=== PATIENT | female | born 1980 | race Caucasian/White ===

== ENCOUNTER 2022-06-19 09:19 | Inpatient (IN) | payer MEDICARE, SELFPAY ==
[2022-06-19 09:28] VITALS: BP 186/138; PULSE 129; RESP 20; TEMP 37; O2SAT 99; BMI 29.7
--- NOTE | 2022-06-19 09:35 | ED.C_ITS ---
HPI - Psych General: Chief Complaint: Psychiatric Symptoms Stated Complaint: Mental Health Eval Time Seen by Provider: 06/19/22 09:35 History of Present Illness: Ms. Ureña is a 41-year-old lady with history of schizoaffective disorder presenting to the emergency department due to worsening psychiatric symptoms and alcohol abuse. The patient reports not taking her medications for 6 or 8 months for schizoaffective disorder. She has had increasing hallucinations including auditory and visual hallucinations as well as abnormal mood and paranoia. She has been self treating with alcohol and is up to drinking approximately a 5th of vodka per day. She previously was on Suboxone for alcohol abuse however has not had this for approximately 1 month either. Overall intensity symptoms is severe. Course has been worsening. No other specific changes in health, exacerbating, or alleviating factors identified. Onset (ago): month(s) Duration: getting worse History of same: Yes Exacerbating factors: alcohol Context: not taking psychiatric medications Associated psychiatric symptoms: racing thoughts, auditory hallucinations, visual hallucinations and delusions Review of Systems General: Reports: 10 or more systems reviewed and unremarkable except in HPI and below PFSH ED PFSH: Medical History Schizoaffective disorder Social History Alcohol intake: current Female Reproductive History: Date of last menstrual period: 06/05/22 Physical Exam Const: COMMON NORMALS: alert GENERAL APPEARANCE: cooperative and well developed HENMT: COMMON NORMALS: normocephalic and atraumatic HEAD & SCALP: normo cephalic and atraumatic Eye: COMMON NORMALS: conjunctivae normal CONJUNCTIVA: Yes conjunctivae normal SCLERA: sclerae normal Neck/C-Spine: COMMON NORMALS: supple GENERAL: Yes trachea midline Resp: COMMON NORMALS: clear to auscultation bilaterally EFFORT & INSPECTION: Yes able to speak in complete sentences AUSCULTATION: clear to auscultation bilaterally Cardio: COMMON NORMALS: regular rate and regular rhythm RATE: regular rate RHYTHM: regular rhythm GI: COMMON NORMALS: Soft to palpation PALPATION: Yes Soft to palpation and No Tenderness to palpation present (GI) Extremity: GENERAL: Yes normal exam except as noted and No edema Neuro: COMMON NORMALS: moves all extremities SENSORIUM/ORIENTATION: Yes alert and No Orientation impaired Psych: ACTIVITY/MOTOR BEHAVIOR: Yes fidgeting, Yes restless and Yes Avoids eye contact (attititude/behavior) MOOD & AFFECT: Yes anxious Course Vital Signs: Vital signs: Vital Signs Temperature 98.6 F 06/20/22 06:00 Pulse Rate 68 06/20/22 06:00 Respiratory Rate 18 06/20/22 06:00 Blood Pressure 114/74 06/20/22 06:00 Pulse Oximetry 95 06/20/22 06:00 Oxygen Delivery Me thod 06/20/22 06:00 MDM - Psych Medical Decision Making 41-year-old lady with history of schizoaffective disorder presenting with not taking medications and worsening psychiatric symptoms and substance abuse. P atient is nontoxic on exam however notably fidgety and at times appears to be concerned about internal stimuli. Laboratory studies notable for mild leukocytosis which may be reactive versus mild dehydration, normal hemoglobin. Metabolic panel with mild evidence of dehydration. Patient can adequately orally rehydrate. Toxic ingestions negative with exception of ethyl alcohol which is mildly elevated at 33 mg/dL. Based on ED evaluation there is no indication for imaging at this time. The results of ED evaluation were discussed with the patient including plan for admission due to requirement for level of care not available if discharged to prevent significant worsening/deterioration. The patient notes marked worsening of psychiatric symptoms which impair her daily functioning. Patient agreeable with plan. Case discussed with psychiatry service who accepted the patient as an admission to neuropsych unit. Medical Records I reviewed the patient's medical records. Lab Data I reviewed the patient's lab results. : 06/19/22 10:04 06/19/22 10:04 Laboratory Results WBC 11.0 10^3/uL (4.0-10.0) H 06/19/22 10:04 RBC 4.48 10^6/uL (4.1-5.3) 06/19/22 10:04 Hgb 14.5 g/dL (11.5-15.3) 06/19/22 10:04 Hct 44.6 % (37.0-47.0) 06/19/22 10:04 MCV 99.6 fl (81-99) H 06/19/22 10:04 MCH 32.4 pg (28.0-34.0) 06/19/22 10:04 MCHC 32.5 g/dL (30.0-36.0) 06/19/22 10:04 RDW 12.8 % (12.1-15.1) 06/19/22 10:04 Plt Count 429 10^3/cmm (130-400) H 06/19/22 10:04 MPV 9.5 fL (7.4-10.4) 06/19/22 10:04 Neut % (Auto) 66.8 % 06/19/22 10:04 Lymph % (Auto) 21.0 % 06/19/22 10:04 Reeves % (Auto) 8.7 % 06/19/22 10:04 Eos % (Auto) 1.9 % 06/19/22 10:04 Baso % (Auto) 1.1 % 06/19/22 10:04 Neut # (Auto) 7.33 10^3/uL (1.8-7.7) 06/19/22 10:04 Lymph # (Auto) 2.3 10^3/uL (0.8-4.8) 06/19/22 10:04 Reeves # (Auto) 1.0 10^3/uL (0.2-0.9) H 06/19/22 10:04 Eos # (Auto) 0.2 10^3/uL (0.0-0.8) 06/19/22 10:04 Baso # (Auto) 0.1 10^3/uL (0.0-0.1) 06/19/22 10:04 Nucleated RBC % (auto) 0 % 06/19/22 10:04 Nucleated RBCs # 0.0 /100WBC 06/19/22 10:04 Sodium 132 mmol/L (136-145) L 06/19/22 10:04 Potassium 4.0 mmol/L (3.5-5.1) 06/19/22 10:04 Chloride 99 mmol/L (98-107) 06/19/22 10:04 Carbon Dioxide 18 mmol/L (22-29) L 06/19/22 10:04 Anion Gap 19.0 (5-19) 06/19/22 10:04 BUN 13 mg/dL (6-20) 06/19/22 10:04 Creatinine 0.6 mg/dL (0.5-0.9) 06/19/22 10:04 GFR Calculation 109.6 mL/min (90-130) 06/19/22 10:04 Glucose 103 mg/dL (65-115) 06/19/22 10:04 Calculated Osmolality 274 mOsm/kg (285-295) L 06/19/22 10:04 Calcium 9.4 mg/dL (8.5-10.5) 06/19/22 10:04 Total Bilirubin 0.5 mg/dL (0.15-1.2) 06/19/22 10:04 AST 40 U/L (0-32) H 06/19/22 10:04 ALT 27 U/L (0-33) 06/19/22 10:04 Alkaline Phosphatase 107 U/L (35-105) H 06/19/22 10:04 Total Protein 8.4 g/dL (6.6-8.7) 06/19/22 10:04 Albumin 4.8 g/dL (3.5-5.2) 06/19/22 10:04 Globulin 3.6 g/dL (1.3-4.6) 06/19/22 10:04 TSH 1.27 uIU/mL (0.27-4.20) 06/19/22 10:04 HCG, Qual Negative (Negative) 06/19/22 09:50 Salicylates < 0.3 mg/dL (3-10) L 06/19/22 10:04 Urine Opiates Screen Negative ng/mL (Negative) 06/19/22 09:50 Acetaminophen < 5.0 ug/mL (10-30) L 06/19/22 10:04 Ur Barbiturates Screen Negative ng/mL (Negative) 06/19/22 09:50 Ur Phencyclidine Scrn Negative ng/mL (Negative) 06/19/22 09:50 Ur Amphetamines Screen Negative ng/mL (Negative) 06/19/22 09:50 U Benzodiazepines Scrn Negative ng/mL (Negative) 06/19/22 09:50 Urine Cocaine Screen Negative ng/mL (Negative) 06/19/22 09:50 U Marijuana (THC) Screen Negative ng/mL (Negative) 06/19/22 09:50 Ethyl Alcohol 33 mg/dL (0-10) H 06/19/22 10:04 Discharge Plan Discharge Patient Disposition: Admitted As Inpatient Admit Provider: True Ibarra Clinical Impression: Schizoaffective disorder, Alcohol abuse, Noncompliance with medications Condition: Stable Coding Level of Care Code ED Technology Education Teacher for Chg Fwd Exam Comprehensive
[2022-06-19] MEDS: nicotine 14 mg Patch 1 PATCH TRANSDERMA (10:09)
[2022-06-19] MEDS: LORazepam 1 mg Tablet PO (10:09)
[2022-06-19 10:12] LABS: Basophils # 0.1 10^3/uL (0.0-0.1); Basophils % 1.1 %; Eosinophils # 0.2 10^3/uL (0.0-0.8); Eosinophils % 1.9 %; Hematocrit 44.6 % (37.0-47.0); Hemoglobin 14.5 g/dL (11.5-15.3); Lymphocytes # 2.3 10^3/uL (0.8-4.8); Mean Corpuscular HGB Conc 32.5 g/dL (30.0-36.0); Mean Corpuscular Hemoglobin 32.4 pg (28.0-34.0); Mean Corpuscular Volume 99.6 fl (81-99); Mean Platelet Volume 9.5 fL (7.4-10.4); Monocytes % 8.7 %; Neutrophils # 7.33 10^3/uL (1.8-7.7); Neutrophils % 66.8 %; Nucleated Red Blood Cells % 0 %; Platelet Count 429 10^3/cmm (130-400); Red Blood Count 4.48 10^6/uL (4.1-5.3); Red Cell Distribution Width 12.8 % (12.1-15.1)
[2022-06-19 10:20] LABS: HCG Qualitative Urine. Negative (Negative)
[2022-06-19 10:28] LABS: Amphetamines Screen Urine Negative (Negative); Barbiturates Screen Urine Negative (Negative); Benzodiazepines Screen Urine Negative (Negative); Cocaine Screen Urine Negative (Negative); Opiate Screen Urine Negative (Negative); PCP Screen Urine Negative (Negative); THC Screen Urine Negative (Negative)
[2022-06-19 10:46] LABS: Alanine Aminotransferase 27 U/L (0-33); Albumin Level 4.8 g/dL (3.5-5.2); Alcohol Level 33 mg/dL (0-10); Alkaline Phosphatase 107 U/L (35-105); Aspartate Amino Transferase 40 U/L (0-32); Blood Urea Nitrogen 13 mg/dL (6-20); Calcium 9.4 mg/dL (8.5-10.5); Carbon Dioxide 18 mmol/L (22-29); Chloride 99 mmol/L (98-107); Globulin 3.6 g/dL (1.3-4.6); Glomerular Filtration Rate 109.6 mL/min (90-130); Glucose 103 mg/dL (65-115); Osmolality Calculated 274 mOsm/kg (285-295); Sodium 132 mmol/L (136-145); Thyroid Stimulating Hormone 1.27 uIU/mL (0.27-4.20); Total Bilirubin 0.5 mg/dL (0.15-1.2); Total Protein 8.4 g/dL (6.6-8.7)
[2022-06-19 10:48] LABS: Acetaminophen < 5.0 ug/mL (10-30); Salicylate < 0.3 mg/dL (3-10)
[2022-06-19 12:04] VITALS: BP 170/98; PULSE 115; RESP 20; TEMP 37; O2SAT 99
--- NOTE | 2022-06-19 12:04 | PC.NURSE ---
Pt being transferred to NPU via wheelchair with PSA, Nurse tech, and nurse. Report has been called at 1125 to NPU nurseNadia.
[2022-06-19 12:10] VITALS: BP 149/93; PULSE 123; RESP 18; TEMP 37.1; O2SAT 98
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
[2022-06-19 14:00] VITALS: BP 149/93; PULSE 123; RESP 18; TEMP 37.1; O2SAT 98
[2022-06-19] MEDS: paliperidone ER 3 mg Tablet PO (14:17)
[2022-06-19] MEDS: OLANZapine 5 mg ODT PO ×2 (14:17→20:20)
[2022-06-19] MEDS: LORazepam 2 mg Tablet PO ×2 (14:39→19:53)
--- NOTE | 2022-06-19 16:42 | PC.OT ---
OT EVALUATION ATTEMPTED. PATIENT IS SLEEPING SOUNDLY. EVALUATION TO BE ATTEMPTED AGAIN TOMORROW.
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
[2022-06-19] MEDS: ondansetron 4 MG Tablet PO (19:53)
[2022-06-19] MEDS: acetaminophen 325 mg Tablet 650 MG PO (19:53)
[2022-06-19] MEDS: trazodone 50 mg Tablet PO (20:20)
[2022-06-20] MEDS: OLANZapine 5 mg ODT PO ×2 (05:24→20:44)
[2022-06-20 06:00] VITALS: BP 114/74; PULSE 68; RESP 18; TEMP 37; O2SAT 95
[2022-06-20] MEDS: potassium chloride ER 10 mEq Tablet PO (08:27)
[2022-06-20] MEDS: paliperidone ER 3 mg Tablet PO (08:27)
[2022-06-20] MEDS: ascorbic acid 500 mg Tablet PO (08:27)
[2022-06-20] MEDS: cholecalciferol (vitamin D3) 1,000 unit Tablet 1000 UNIT PO (08:27)
[2022-06-20] MEDS: LORazepam 2 mg Tablet PO ×3 (08:27→20:50)
[2022-06-20] MEDS: prenatal vitamin Capsule 1 CAP PO (08:27)
--- NOTE | 2022-06-20 09:21 | PC.OT ---
Eval attempt - Patient asleep during time of attempted evaluation. Will try again at a later time.
[2022-06-20] MEDS: nicotine 2 mg Gum BUCCAL ×3 (12:01→20:50)
[2022-06-20] MEDS: haloperidol 5 mg Tablet PO (12:19)
--- NOTE | 2022-06-20 13:57 | PC.NURSE ---
This nurse went to admin hydroxyzine and the patient stated that she did not want that because it causes her seizures. This nurse notified the provider.
[2022-06-20 14:00] VITALS: BP 134/88; PULSE 88; RESP 16; TEMP 36.7; O2SAT 96
--- NOTE | 2022-06-20 17:24 | W.PM.NPUPNS ---
Subjective NPU Subjective: Patient is a 41-year-old white female with a history of alcohol dependence PTSD and depression admitted with hallucinations irritability and agitation. She had reported significant anxiety and reports no alcohol in several days. She states that she needed something to help her with alcohol withdrawal at this time. She reported having occasional suicidal thoughts. She had reported that her thoughts at times were racing. She reported no side effects from the initiation of Invega to target mood swings irritability and agitation. She had stated that she needed help with managing her addiction. She had reported an extended history of multiple medication trials and states that she wished to have her medications adjusted. She reported having difficulties with falling asleep. She had reported some abdominal pain and discomfort. Mental Status Exam MSE Comments: She is a 41-year-old white female who appeared her stated age. She was disheveled with poor hygiene. She did appear to be somewhat anxious and in some distress forth during the interview with some tremors noted in her arms. Her eye contact was intermittent. Her mood was described as depressed. Her affect was mood congruent and restricted in range and flat. Her thought process was linear logical and goal-directed. Her thought content revealed fleeting suicidal thoughts with no active plan at this time. There was no clear evidence of delusional thinking although she did appear at times to be responding to internal stimuli. Her speech showed evidence of increased latency, and normal prosody and volume. Impulse control remained poor. Her insight was limited and her judgment is poor at this time. Vitals/I&O/Wt Last Vital Signs Temp 98.1 F 06/20/22 14:00 Pulse 88 06/20/22 14:00 Resp 16 06/20/22 14:00 BP 134/88 06/20/22 14:00 Pulse Ox 96 06/20/22 14:00 O2 Del Method 06/20/22 06:00 Weight last 48 hrs Weight 81.193 kg Data NPU : 06/19/22 10:04 06/19/22 10:04 A&P Assessment and plan (1) Schizoaffective disorder: (2) Alcohol abuse: Plan 41-year-old white female without history of schizoaffective disorder bipolar type currently experiencing an exacerbation of her symptoms including active psychosis depressed mood with an additional comorbidity of alcohol dependence. 1.? Start invega 3mg at night; 2.? Encourage individual, group and milieu therapy 3.? Continue q-15 minute check for safety 4.? Recommend sober living treatment at the highest level of care to which the patient is willing to commit. 5. CIWA scale to monitor for alcohol withdrawal symptoms. Will begin routine librium 10mg bid. Involuntary Hold Information 96 Hour Hold: 96 Hour Involuntary Admission: No Attestations NPU Medical Necessity Statement*: Inpatient hospitalization is medically necessary and the clinically appropriate intervention at this time. We will monitor medications and make changes as indicated. Patient will be in the hospital for over two midnights. Likely length of stay is five to seven days. Coding Level of Care Code Established Pt Acute Heavy Mobile Equipment Repairer for Tomasag Fwmikal Patient Type Established History Problem Focused Exam Problem Focused Medical Decision Making Straight Forward Diagnoses Schizoaffective disorder F25.9 Alcohol abuse F10.10
[2022-06-20] MEDS: chlordiazePOXIDE 10 mg Capsule PO (17:47)
[2022-06-20 20:07] VITALS: RESP 17
[2022-06-20] MEDS: trazodone 50 mg Tablet PO (20:44)
[2022-06-20] MEDS: acetaminophen 325 mg Tablet 650 MG PO (20:50)
[2022-06-21] MEDS: OLANZapine 5 mg ODT PO ×3 (05:04→17:56)
[2022-06-21] MEDS: nicotine 2 mg Gum BUCCAL ×3 (05:05→17:54)
[2022-06-21 06:00] VITALS: RESP 16
[2022-06-21] MEDS: LORazepam 2 mg Tablet PO ×3 (07:43→20:14)
[2022-06-21] MEDS: nicotine 21 mg Patch 1 PATCH TRANSDERMA (07:52)
[2022-06-21] MEDS: paliperidone ER 3 mg Tablet PO (08:47)
[2022-06-21] MEDS: chlordiazePOXIDE 10 mg Capsule PO ×2 (08:47→17:53)
[2022-06-21] MEDS: ascorbic acid 500 mg Tablet PO (08:47)
[2022-06-21] MEDS: prenatal vitamin Capsule 1 CAP PO (08:47)
[2022-06-21] MEDS: potassium chloride ER 10 mEq Tablet PO (08:47)
[2022-06-21] MEDS: cholecalciferol (vitamin D3) 1,000 unit Tablet 1000 UNIT PO (08:47)
--- NOTE | 2022-06-21 12:35 | PC.NURSE ---
PRN MEDS PATIENT COMPLAINS OF INCREASING ANXIETY. 5 MG ZYPREXA GIVEN AT 1220
[2022-06-21] MEDS: simethicone 80 mg Chew PO (13:20)
[2022-06-21 13:36] VITALS: BP 132/92; PULSE 127; RESP 16; TEMP 36.6; O2SAT 100
--- NOTE | 2022-06-21 14:01 | W.PM.NPUPNS ---
Subjective NPU Subjective: Patient is a 41-year-old white female who has a history of schizoaffective disorder bipolar type was admitted with significant alcohol consumption along with a reemergence of depression and hallucinations. Patient had admitted to the use of 2 pints of alcohol daily for months. She reports that she did benefit from receiving Librium last night. She had reported feeling anxious and continue to report feeling depressed with suicidal thoughts and complaints of hearing voices in her head. She had reported an extended history of medication trials without success but reported that she was hopeful about seeing benefits with Invega as she had taken it before in the past. She had attended some groups. She reported continued sleep problems as well. She had reported racing thoughts at times and reported having continued irritability. She had endorsed having very little sobriety over the last few years. She reported problems with concentration and reported being distracted easily. Mental Status Exam MSE Comments: She is a 41-year-old white female who appeared her stated age. She was disheveled with poor hygiene. She did appear to be somewhat anxious and in some distress forth during the interview with some tremors noted in her arms. Her eye contact was intermittent. Her mood was depressed. Her affect was mood congruent and flat with restricted range. Her thought process was linear logical and goal-directed. Her thought content revealed fleeting suicidal thoughts with no active plan at this time. There was no clear evidence of delusional thinking although she did appear at times to be responding to internal stimuli. Her speech showed evidence of increased latency, and normal prosody and volume. Impulse control remained poor. Her insight was limited and her judgment is poor at this time. Vitals/I&O/Wt Last Vital Signs Temp 97.9 F 06/21/22 13:36 Pulse 127 H 06/21/22 13:36 Resp 16 06/21/22 13:36 BP 132/92 06/21/22 13:36 Pulse Ox 100 06/21/22 13:36 O2 Del Method 06/20/22 06:00 Data NPU : 06/19/22 10:04 06/19/22 10:04 A&P Assessment and plan (1) Schizoaffective disorder: (2) Alcohol abuse: Plan 41-year-old white female without history of schizoaffective disorder bipolar type currently experiencing an exacerbation of her symptoms including active psychosis depressed mood with an additional comorbidity of alcohol dependence. 1.? Continue invega 3mg at night; add cymbalta 30mg daily target anxiety. 2.? Encourage individual, group and milieu therapy 3.? Continue q-15 minute check for safety 4.? Recommend sober living treatment at the highest level of care to which the patient is willing to commit. 5. CIWA scale to monitor for alcohol withdrawal symptoms. Will begin routine librium 10mg bid. Involuntary Hold Information 96 Hour Hold: 96 Hour Involuntary Admission: No Attestations NPU Medical Necessity Statement*: Inpatient hospitalization is medically necessary and the clinically appropriate intervention at this time. We will monitor medications and make changes as indicated. Patient will be in the hospital for over two midnights. Likely length of stay is five to seven days. She would benefit from inpatient substance abuse treatment. Coding Level of Care Code Established Pt Acute Roping Machine Tender for Pérez Carmona Patient Type Established History Problem Focused Exam Problem Focused Medical Decision Making Straight Forward Diagnoses Schizoaffective disorder F25.9 Alcohol abuse F10.10
[2022-06-21] MEDS: haloperidol 5 mg Tablet PO ×2 (14:27→18:41)
[2022-06-21] MEDS: diphenhydrAMINE 50 mg Capsule PO (15:07)
[2022-06-21] MEDS: LORazepam 2 mg/mL INJ 1 mL IM (16:11)
[2022-06-21] MEDS: diphenhydrAMINE 50 mg/mL SDV 1mL IM (16:12)
[2022-06-21] MEDS: haloperidol inj 5 mg/mL INJ 1 mL IM (16:12)
[2022-06-21 20:07] VITALS: BP 128/87; PULSE 103; RESP 16; TEMP 36.7; O2SAT 96
[2022-06-22 06:00] VITALS: RESP 18
[2022-06-22] MEDS: prenatal vitamin Capsule 1 CAP PO (08:41)
[2022-06-22] MEDS: paliperidone ER 3 mg Tablet PO (08:41)
[2022-06-22] MEDS: cholecalciferol (vitamin D3) 1,000 unit Tablet 1000 UNIT PO (08:41)
[2022-06-22] MEDS: ascorbic acid 500 mg Tablet PO (08:41)
[2022-06-22] MEDS: duloxetine 30 mg Capsule PO (08:41)
[2022-06-22] MEDS: chlordiazePOXIDE 10 mg Capsule PO (08:41)
[2022-06-22] MEDS: potassium chloride ER 10 mEq Tablet PO (08:41)
[2022-06-22] MEDS: LORazepam 2 mg Tablet PO ×2 (08:45→18:41)
[2022-06-22] MEDS: nicotine 2 mg Gum BUCCAL ×2 (09:04→11:27)
[2022-06-22] MEDS: simethicone 80 mg Chew PO (09:53)
[2022-06-22] MEDS: OLANZapine 5 mg ODT PO ×2 (10:14→16:06)
[2022-06-22] MEDS: haloperidol inj 5 mg/mL INJ 1 mL IM (11:33)
[2022-06-22] MEDS: diphenhydrAMINE 50 mg/mL SDV 1mL IM (11:40)
[2022-06-22] MEDS: acetaminophen 325 mg Tablet 650 MG PO (13:35)
[2022-06-22] MEDS: LORazepam 2 mg/mL INJ 1 mL IM (13:42)
[2022-06-22] MEDS: nicotine 21 mg Patch 1 PATCH TRANSDERMA (13:45)
[2022-06-22 14:00] VITALS: RESP 15
--- NOTE | 2022-06-22 14:11 | W.PM.NPUPNS ---
Subjective NPU Subjective: Patient is a 41-year-old white female who has a history of schizoaffective disorder bipolar type was admitted with significant alcohol consumption along with a reemergence of depression and hallucinations. Patient had admitted to the use of 2 pints of alcohol daily for months. She remains on an alcohol withdrawal protocol. She had continued reported history of depression under the auspices of patricio as well. She had reported having mixed mood symptoms in the past. She reported continued suicidal thoughts and depressed mood. She had reported that she wished to receive inpatient substance abuse treatment if possible. She had continued to endorse hearing different voices but stated that she was able to distract herself. She had required addition of Ativan last night due to alcohol withdrawal symptoms. She was able to attend groups and appeared less isolative on the milieu. Mental Status Exam MSE Comments: She is a 41-year-old white female who appeared her stated age. She was disheveled with poor hygiene. There was no evidence of any abnormal involuntary motor movements tics or tremors appreciated today her eye contact was intermittent. Her mood was depressed. Her affect was mood congruent and flat with restricted range. Her thought process was linear logical and goal-directed. Her thought content revealed fleeting suicidal thoughts with no active plan at this time. There was no clear evidence of delusional thinking although she did appear at times to be responding to internal stimuli. Her speech was normal in regards to rate rhythm and prosody.,Impulse control remained poor. Her insight was limited and her judgment is poor at this time. Vitals/I&O/Wt Last Vital Signs Temp 98.1 F 06/21/22 20:07 Pulse 103 H 06/21/22 20:07 Resp 18 06/22/22 06:00 BP 128/87 06/21/22 20:07 Pulse Ox 96 06/21/22 20:07 O2 Del Method 06/20/22 06:00 Weight last 48 hrs Weight 84.822 kg Data NPU : 06/19/22 10:04 06/19/22 10:04 A&P Assessment and plan (1) Schizoaffective disorder: (2) Alcohol abuse: Plan 41-year-old white female without history of schizoaffective disorder bipolar type currently experiencing an exacerbation of her symptoms including active psychosis depressed mood with an additional comorbidity of alcohol dependence. 1.? ;Discontinue Invega and begin latuda 40mg at night with food to target bipolar depression. Continue cymbalta 30mg daily to target anxiety. 2.? Encourage individual, group and milieu therapy 3.? Continue q-15 minute check for safety 4.? Recommend sober living treatment at the highest level of care to which the patient is willing to commit. 5. CIWA scale to monitor for alcohol withdrawal symptoms. Reduce Librium 5mg tid. Involuntary Hold Information 96 Hour Hold: 96 Hour Involuntary Admission: No Attestations NPU Medical Necessity Statement*: Inpatient hospitalization is medically necessary and the clinically appropriate intervention at this time. We will monitor medications and make changes as indicated. Patient will be in the hospital for over two midnights. Likely length of stay is five to seven days. She would benefit from inpatient substance abuse treatment. Coding Level of Care Code Established Pt Acute Song And Dance Performer for Pérez Carmona Patient Type Established History Problem Focused Exam Problem Focused Medical Decision Making Straight Forward Diagnoses Schizoaffective disorder F25.9 Alcohol abuse F10.10
[2022-06-22] MEDS: haloperidol 5 mg Tablet PO (16:42)
[2022-06-22 17:32] LABS: Glucose Point of Care 126 mg/dL (70-110)
[2022-06-22] MEDS: lurasidone 20 mg Tablet 40 MG PO (17:39)
[2022-06-22] MEDS: diazePAM 5 mg Tablet PO (17:39)
[2022-06-22] MEDS: doxepin 25 mg Capsule PO (19:42)
[2022-06-22 21:41] VITALS: BP 127/84; PULSE 104; RESP 18; TEMP 36.7; O2SAT 98
[2022-06-23] MEDS: haloperidol 5 mg Tablet PO ×3 (05:29→20:33)
[2022-06-23 05:54] VITALS: BP 134/86; PULSE 121; RESP 18; TEMP 36.4; O2SAT 97
[2022-06-23] MEDS: duloxetine 30 mg Capsule PO (08:21)
[2022-06-23] MEDS: cholecalciferol (vitamin D3) 1,000 unit Tablet 1000 UNIT PO (08:21)
[2022-06-23] MEDS: prenatal vitamin Capsule 1 CAP PO (08:21)
[2022-06-23] MEDS: diazePAM 5 mg Tablet PO ×2 (08:21→17:20)
[2022-06-23] MEDS: potassium chloride ER 10 mEq Tablet PO (08:21)
[2022-06-23] MEDS: ascorbic acid 500 mg Tablet PO (08:21)
[2022-06-23] MEDS: OLANZapine 5 mg ODT PO ×2 (09:06→13:06)
[2022-06-23] MEDS: LORazepam 2 mg Tablet PO (09:28)
[2022-06-23] MEDS: nicotine 2 mg Gum BUCCAL ×4 (09:28→20:33)
[2022-06-23] MEDS: acetaminophen 325 mg Tablet 650 MG PO ×2 (10:20→20:33)
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
[2022-06-23 14:00] VITALS: BP 117/68; PULSE 128; RESP 16; TEMP 36.7; O2SAT 98
--- NOTE | 2022-06-23 16:23 | P.NPUPN_ITS ---
Subjective NPU Subjective: Patient is a 41-year-old white female who has a history of schizoaffective disorder bipolar type was admitted with significant alcohol consumption along with a reemergence of depression and hallucinations. Patient endorsed no alcohol withdrawal symptoms today. She reports that she wished to resume her Suboxone as it had been helpful for managing opiate cravings. She reports no side effects from her Latuda at this time. She continue to endorse depressed mood but reported no suicidal thoughts. She reported that she had been not having as many racing thoughts. She reports that she wishes to receive help on an inpatient basis for alcohol dependence but understood that there was a waiting list and stated that she would like to return to an outpatient treatment for her polysubstance abuse. Patient reported that the voices had been significantly diminished in regards to intensity and frequency. Mental Status Exam MSE Comments: She is a 41-year-old white female who appeared her stated age. She was disheveled with poor hygiene. There was no evidence of any abnormal involuntary motor movements tics or tremors appreciated today her eye contact was intermittent. Her mood was described as a little better. Her affect was mood incongruent and flat with restricted range. Her thought process was linear logical and goal-directed. Her thought content revealed fleeting suicidal thoughts with no active plan at this time. There was no clear evidence of delusional thinking although she did appear at times to be responding to internal stimuli. Her speech was normal in regards to rate rhythm and prosody.,Impulse control remained poor. Her insight was limited and her judgment is poor at this time. Vitals/I&O/Wt Last Vital Signs Temp 98.1 F 06/23/22 14:00 Pulse 128 H 06/23/22 14:00 Resp 16 06/23/22 14:00 BP 117/68 06/23/22 14:00 Pulse Ox 98 06/23/22 14:00 O2 Del Method 06/20/22 06:00 Weight last 48 hrs Weight 84.822 kg Data NPU : 06/19/22 10:04 06/19/22 10:04 A&P Assessment and plan (1) Schizoaffective disorder: (2) Alcohol abuse: Plan 41-year-old white female without history of schizoaffective disorder bipolar type currently experiencing an exacerbation of her symptoms including active psychosis depressed mood with an additional comorbidity of alcohol dependence. 1.? Continue latuda 40mg at night with food to target bipolar depression. Continue cymbalta 30mg daily to target anxiety. Continue Doxepin 25mg at night for insomnia. 2.? Encourage individual, group and milieu therapy 3.? Continue q-15 minute check for safety 4.? Recommend sober living treatment at the highest level of care to which the patient is willing to commit. 5. CIWA scale to monitor for alcohol withdrawal symptoms. Reduce valium to 2.5mg bid. Involuntary Hold Information 96 Hour Hold: 96 Hour Involuntary Admission: No Attestations NPU Medical Necessity Statement*: Inpatient hospitalization is medically necessary and the clinically appropriate intervention at this time. We will monitor medications and make changes as indicated. Patient will be in the hospital for over two midnights. Likely length of stay is five to seven days. She would oanh efit from inpatient substance abuse treatment if possible. Coding Level of Care Code Established Pt Acute Guest Services Associate for Pérez Carmona Patient Type Established History Problem Focused Exam Problem Focused Medical Decision Making Straight Forward Diagnoses Schizoaffective disorder F25.9 Alcohol abuse F10.10
[2022-06-23] MEDS: lurasidone 20 mg Tablet 40 MG PO (17:20)
[2022-06-23] MEDS: buprenorphine-naloxone 4-1 mg Film 1 EACH SUBLINGUAL (17:20)
[2022-06-23] MEDS: ondansetron 4 MG Tablet PO (17:21)
[2022-06-23] MEDS: calcium carbonate 500 mg Chew Tablet 1000 MG PO (18:43)
[2022-06-23 20:20] VITALS: BP 118/79; PULSE 114; RESP 16; TEMP 36.8; O2SAT 94
[2022-06-23] MEDS: doxepin 25 mg Capsule PO (20:57)
[2022-06-24 06:00] VITALS: BP 110/71; PULSE 93; RESP 16; TEMP 36.6; O2SAT 96
[2022-06-24] MEDS: nicotine 2 mg Gum BUCCAL ×2 (06:11→20:23)
[2022-06-24] MEDS: buprenorphine-naloxone 4-1 mg Film 1 EACH SUBLINGUAL ×2 (08:21→18:24)
[2022-06-24] MEDS: prenatal vitamin Capsule 1 CAP PO (08:21)
[2022-06-24] MEDS: duloxetine 30 mg Capsule PO (08:21)
[2022-06-24] MEDS: potassium chloride ER 10 mEq Tablet PO (08:21)
[2022-06-24] MEDS: cholecalciferol (vitamin D3) 1,000 unit Tablet 1000 UNIT PO (08:21)
[2022-06-24] MEDS: diazePAM 5 mg Tablet 2.5 MG PO (08:21)
[2022-06-24] MEDS: ascorbic acid 500 mg Tablet PO (08:21)
[2022-06-24] MEDS: ondansetron 4 MG Tablet PO ×2 (08:24→18:27)
[2022-06-24] MEDS: acetaminophen 325 mg Tablet 650 MG PO ×2 (08:31→16:49)
[2022-06-24] MEDS: nicotine 21 mg Patch 1 PATCH TRANSDERMA (09:31)
[2022-06-24 14:00] VITALS: BP 112/86; PULSE 83; RESP 15; TEMP 36.6; O2SAT 96
[2022-06-24] MEDS: calcium carbonate 500 mg Chew Tablet 1000 MG PO (14:48)
[2022-06-24] MEDS: OLANZapine 5 mg ODT PO ×2 (15:18→20:23)
--- NOTE | 2022-06-24 17:09 | P.NPUPN_ITS ---
Subjective NPU Subjective: Patient is a 41-year-old white female who has a history of schizoaffective disorder bipolar type was admitted with significant alcohol consumption along with a reemergence of depression and hallucinations. The patient reported feeling better today. She reported no withdrawal symptoms from alcohol. She reports that she had no cravings for alcohol and denied any opiate associated cravings. She reported a past history of manic and hypomanic symptoms but reported having greater periods of depression. She reported tolerance of Latuda and was informed to take it with food. She reports that she would like to attend inpatient treatment for substance abuse but would be willing to consider outpatient for the time being. She reports having no suicidal thoughts currently and reports that the auditory hallucinations have diminished. Mental Status Exam MSE Comments: She is a 41-year-old white female who appeared her stated age. She was disheveled with poor hygiene. There was no evidence of any abnormal involuntary motor movements tics or tremors appreciated today her eye contact was intermittent. Her mood was described as better. Her affect was mood congruent today.. Her thought process was linear logical and goal-directed. Her thought content showed no suicidal ideation with no active plan at this time. There was no clear evidence of delusional thinking and did not appear to be responding to internal stimuli. Her speech was normal in regards to rate rhythm and prosody. Impulse control appeared to be improving. Her insight was limited and her judgment is poor at this time. Vitals/I&O/Wt Last Vital Signs Temp 97.8 F 06/24/22 06:00 Pulse 93 06/24/22 06:00 Resp 16 06/24/22 06:00 BP 110/71 06/24/22 06:00 Pulse Ox 96 06/24/22 06:00 O2 Del Method 06/20/22 06:00 Data NPU : 06/19/22 10:04 06/19/22 10:04 A&P Assessment and plan (1) Schizoaffective disorder: (2) Alcohol abuse: Plan 41-year-old white female without history of schizoaffective disorder bipolar type currently experiencing an exacerbation of her symptoms including active psychosis depressed mood with an additional comorbidity of alcohol dependence. 1.? Continue latuda 40mg at night with food to target bipolar depression. Continue cymbalta 30mg daily to target anxiety. Continue Doxepin 25mg at night for insomnia. 2.? Encourage individual, group and milieu therapy 3.? Continue q-15 minute check for safety 4.? Recommend sober living treatment at the highest level of care to which the patient is willing to commit. 5. CIWA scale to monitor for alcohol withdrawal symptoms. Reduce valium to 2.5mg in am. Involuntary Hold Information 96 Hour Hold: 96 Hour Involuntary Admission: No Attestations NPU Medical Necessity Statement*: Inpatient hospitalization is medically necessary and the clinically appropriate intervention at this time. We will monitor medications and make changes as indicated. Patient will be in the hospital for over two midnights. Likely length of stay is 1-2 days. She would benefit from inpatient substance abuse treatment if possible. Coding Level of Care Code Established Pt Acute Doctor Chiropractic for Pérez Carmona Patient Type Established History Problem Focused Exam Problem Focused Medical Decision Making Straight Forward Diagnoses Schizoaffective disorder F25.9 Alcohol abuse F10.10
[2022-06-24] MEDS: lurasidone 20 mg Tablet 40 MG PO (18:24)
[2022-06-24] MEDS: magnesium hydroxide 30 mL UDC PO (19:13)
[2022-06-24 20:05] VITALS: BP 115/81; PULSE 108; RESP 18; TEMP 36.7; O2SAT 96
[2022-06-24] MEDS: doxepin 25 mg Capsule PO (20:23)
[2022-06-25 06:00] VITALS: BP 121/79; PULSE 94; RESP 16; TEMP 36.8; O2SAT 95
[2022-06-25] MEDS: acetaminophen 325 mg Tablet 650 MG PO (06:00)
[2022-06-25] MEDS: diazePAM 5 mg Tablet 2.5 MG PO (08:15)
[2022-06-25] MEDS: potassium chloride ER 10 mEq Tablet PO (08:15)
[2022-06-25] MEDS: buprenorphine-naloxone 4-1 mg Film 1 EACH SUBLINGUAL (08:15)
[2022-06-25] MEDS: cholecalciferol (vitamin D3) 1,000 unit Tablet 1000 UNIT PO (08:15)
[2022-06-25] MEDS: prenatal vitamin Capsule 1 CAP PO (08:15)
[2022-06-25] MEDS: ascorbic acid 500 mg Tablet PO (08:15)
[2022-06-25] MEDS: duloxetine 30 mg Capsule PO (08:15)
[2022-06-25] MEDS: ondansetron 4 MG Tablet PO (08:30)
[2022-06-25] MEDS: nicotine 2 mg Gum BUCCAL (08:37)
[2022-06-25] MEDS: magnesium hydroxide 30 mL UDC PO (08:43)
[2022-06-25] MEDS: OLANZapine 5 mg ODT PO (09:18)
[2022-06-25 09:41] VITALS: BP 121/79; PULSE 94; RESP 16; TEMP 36.8; O2SAT 95
--- NOTE | 2022-06-25 09:49 | DCPLANNER ---
Imm was given to pt and explained. Copy was placed in chart.
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
== END 2022-06-25 11:04 | disposition home or self-care (01) | DRG 885 ==
LOC: ER 11:00 → NP 11:23
PROVIDERS: Admitting Provider Psychiatry & Neurology Psychiatry; Emergency Provider Emergency Medicine; Visit Provider Psychiatry & Neurology Psychiatry
DX: F25.0 Schizoaffective disorder, bipolar type (principal); R45.851 Suicidal ideations; F10.239 Alcohol dependence with withdrawal, unspecified; Y90.1 Blood alcohol level of 20-39 mg/100 ml; T43.96XA Underdosing of unspecified psychotropic drug, initial encounter; E86.0 Dehydration; F43.10 Post-traumatic stress disorder, unspecified; G47.00 Insomnia, unspecified; R25.1 Tremor, unspecified; Z62.810 Personal history of physical and sexual abuse in childhood; Z86.19 Personal history of other infectious and parasitic diseases; Z91.410 Personal history of adult physical and sexual abuse
CPT/HCPCS: 36415; 36416; 80053; 80306; 80307; 81025; 82962; 84443; 85025; 96372; 97150; 97165; 99285; J0573; J1200; J1630; J2060; Q0162; Q0163

== ENCOUNTER 2022-09-15 09:15 | Inpatient (IN) | payer MEDICARE, MEDICAID, SELFPAY ==
[2022-09-15 09:20] VITALS: BP 157/93; PULSE 128; RESP 22; TEMP 36.8; O2SAT 96; BMI 28.8
--- NOTE | 2022-09-15 10:02 | W.ED.PSYCHS ---
HPI - Psych General: Chief Complaint: Psychiatric Symptoms Stated Complaint: MHE Time Seen by Provider: 09/15/22 09:30 Source: patient Mode of arrival: ambulatory Limitations: no limitations History of Present Illness: Patient is a 42-year-old female with a history of schizoaffective bipolar type here for complaints of patricio and significant anxiety. Patient tells me that she is battling herself in her head . She feels like her medications are not working. Patient states she has not slept or ate in four days. She states she is not functioning well currently due to her anxiety. States she has been drinking more to cope. Denies drug use. No suicidal or homicidal ideations. MD complaint: other (patricio, anxiety, etoh abuse) Onset (ago): day(s) Duration: constant History of same: Yes Exacerbating factors: none Context: recent alcohol abuse Associated psychiatric symptoms: racing thoughts Associated symptoms: Deny auditory hallucinations, visual hallucinations, depression, homicidal ideation or suicidal ideation Treatments prior to arrival: none Review of Systems Const: Denies: fever(s) or chills Card: Denies: chest pain, palpitations, lightheadedness or syncope Resp: Denies: dyspnea GI: Denies: abdominal pain, nausea, vomiting or diarrhea Musc: Denies: neck pain, back pain, extremity pain or joint pain Skin/Breast: Denies: rash Neuro: Denies: headache(s), numbness in extremities, weakness in extremities or sensory changes Psych: Reports: anxiety, mood swings, panic attacks, sleeping less, change in appetite, irritability and difficulty concentrating; Denies: depression, hopelessness, loss of interest, visual hallucinations, auditory hallucinations, suicidal ideation or homicidal ideation [facility] ED PFSH: Medical History Psychiatric care Schizoaffective disorder Social History Alcohol intake: current Female Reproductive History: Date of last menstrual period: 06/05/22 Physical Exam Const: COMMON NORMALS: no acute distress, patient oriented x3, no limitations, alert and well nourished GENERAL APPEARANCE: cooperative, well kempt and odor of alcohol detected ORIENTATION/CONSCIOUSNESS: Yes awake, Yes oriented to person, Yes oriented to place and Yes oriented to time HENMT: COMMON NORMALS: normocephalic and atraumatic HEAD & SCALP: normal to inspection, normocephalic and atraumatic Resp: COMMON NORMALS: normal respiratory effort and clear to auscultation bilaterally AUSCULTATION: clear to auscultation bilaterally Cardio: COMMON NORMALS: regular rate and regular rhythm RATE: regular rate RHYTHM: regular rhythm Neuro: [place] COMA SCALE: document GCS findings [place] coma scale eye opening: Spontaneous [place] coma scale verbal response: Orientated [place] coma scale motor response: Obey commands [place] coma scale total score: 15 COMMON NORMALS: patient oriented x3 SENSORIUM/ORIENTATION: Yes alert, Yes oriented to person, Yes oriented to place and Yes oriented to time Psych: COMMON NORMALS: mental status grossly normal, Normal thought process present, cooperative, normal affect, speech normal, denies hallucinations, denies homicidal ideation and denies suicidal ideation APPEARANCE: Yes grossly normal and Yes well kempt ATTITUDE: Yes calm ACTIVITY/MOTOR BEHAVIOR: Yes appropriate eye contact, No psychomotor agitation, Yes fidgeting, Yes restless and Yes other (rocking back and forth on bed) SPEECH: Yes normal speech MOOD & AFFECT: Yes anxious THOUGHT PROCESS: Normal thought process present THOUGHT CONTENT: Yes Normal thought content present ATTENTION/CONCENTRATION: Yes attention grossly intact and Yes concentration grossly intact MEMORY/COGNITION: Yes memory grossly intact and Yes cognition grossly intact INSIGHT: Good insight present (Psych) JUDGEMENT: Good judgement present (Psych) Course Consultations: Consultation #1: Dr. Ibarra-accepts to NPU Vital Signs: Vital signs: Vital Signs Temperature 98.3 F 09/15/22 09:20 Pulse Rate 128 H 09/15/22 09:20 Respiratory Rate 22 H 09/15/22 09:20 Blood Pressure 157/93 09/15/22 09:20 Pulse Oximetry 96 09/15/22 09:20 Oxygen Delivery Me thod 09/15/22 09:20 MDM - Psych Medical Decision Making Patient here requesting psychiatric hospitalization. She states she is not functioning or able to perform daily activities secondary to her current manic status and anxiety. States she has not ate or slept in 4 days. She is extremely anxious and antsy here-pacing around her room, pulling her hair out, ect. Patient would benefit from hospitalization. Spoke to Dr. Ibarra who accepts admission. Lab Data 09/15/22 10:35 09/15/22 10:35 Laboratory Results WBC 14.5 10^3/uL (4.0-10.0) H 09/15/22 10:35 RBC 4.79 10^6/uL (4.1-5.3) 09/15/22 10:35 Hgb 14.8 g/dL (11.5-15.3) 09/15/22 10:35 Hct 44.3 % (37.0-47.0) 09/15/22 10:35 MCV 92.5 fl (81-99) 09/15/22 10:35 MCH 30.9 pg (28.0-34.0) 09/15/22 10:35 MCHC 33.4 g/dL (30.0-36.0) 09/15/22 10:35 RDW 12.5 % (12.1-15.1) 09/15/22 10:35 Plt Count 451 10^3/cmm (130-400) H 09/15/22 10:35 MPV 9.2 fL (7.4-10.4) 09/15/22 10:35 Neut % (Auto) 66.3 % 09/15/22 10:35 Lymph % (Auto) 25.4 % 09/15/22 10:35 [place] % (Auto) 6.1 % 09/15/22 10:35 Eos % (Auto) 1.0 % 09/15/22 10:35 Baso % (Auto) 0.8 % 09/15/22 10:35 Neut # (Auto) 9.62 10^3/uL (1.8-7.7) H 09/15/22 10:35 Lymph # (Auto) 3.7 10^3/uL (0.8-4.8) 09/15/22 10:35 [place] # (Auto) 0.9 10^3/uL (0.2-0.9) 09/15/22 10:35 Eos # (Auto) 0.2 10^3/uL (0.0-0.8) 09/15/22 10:35 Baso # (Auto) 0.1 10^3/uL (0.0-0.1) 09/15/22 10:35 Nucleated RBC % (auto) 0 % 09/15/22 10:35 Nucleated RBCs # 0.0 /100WBC 09/15/22 10:35 Sodium 136 mmol/L (136-145) 09/15/22 10:35 Potassium 3.8 mmol/L (3.5-5.1) 09/15/22 10:35 Chloride 99 mmol/L (98-107) 09/15/22 10:35 Carbon Dioxide 21 mmol/L (22-29) L 09/15/22 10:35 Anion Gap 19.8 (5-19) H 09/15/22 10:35 BUN 15 mg/dL (6-20) 09/15/22 10:35 Creatinine 0.5 mg/dL (0.5-0.9) 09/15/22 10:35 GFR Calculation 134.7 mL/min (90-130) H 09/15/22 10:35 Glucose 100 mg/dL (65-115) 09/15/22 10:35 Calculated Osmolality 283 mOsm/kg (285-295) L 09/15/22 10:35 Calcium 8.5 mg/dL (8.5-10.5) 09/15/22 10:35 Total Bilirubin 0.2 mg/dL (0.15-1.2) 09/15/22 10:35 AST 26 U/L (0-32) 09/15/22 10:35 ALT 22 U/L (0-33) 09/15/22 10:35 Alkaline Phosphatase 109 U/L (35-105) H 09/15/22 10:35 Total Protein 8.0 g/dL (6.6-8.7) 09/15/22 10:35 Albumin 4.7 g/dL (3.5-5.2) 09/15/22 10:35 Globulin 3.3 g/dL (1.3-4.6) 09/15/22 10:35 HCG, Qual Negative (Negative) 09/15/22 10:35 Salicylates 0.4 mg/dL (3-10) L 09/15/22 10:35 Urine Opiates Screen Negative ng/mL (Negative) 09/15/22 10:40 Acetaminophen < 5.0 ug/mL (10-30) L 09/15/22 10:35 Ur Barbiturates Screen Negative ng/mL (Negative) 09/15/22 10:40 Ur Phencyclidine Scrn Negative ng/mL (Negative) 09/15/22 10:40 Ur Amphetamines Screen Negative ng/mL (Negative) 09/15/22 10:40 U Benzodiazepines Scrn Negative ng/mL (Negative) 09/15/22 10:40 Urine Cocaine Screen Negative ng/mL (Negative) 09/15/22 10:40 U Marijuana (THC) Screen Negative ng/mL (Negative) 09/15/22 10:40 Ethyl Alcohol 215 mg/dL (0-10) H 09/15/22 10:35 Discharge Plan Discharge Patient Disposition: Admitted As Inpatient Clinical Impression: Schizoaffective disorder, Alcohol abuse Condition: Stable Coding Level of Care Code ED Flight Data Technician for Pérez Fwd Exam Detailed
[2022-09-15 10:46] LABS: Basophils # 0.1 10^3/uL (0.0-0.1); Basophils % 0.8 %; Eosinophils # 0.2 10^3/uL (0.0-0.8); Hematocrit 44.3 % (37.0-47.0); Hemoglobin 14.8 g/dL (11.5-15.3); Lymphocytes # 3.7 10^3/uL (0.8-4.8); Lymphocytes % 25.4 %; Mean Corpuscular HGB Conc 33.4 g/dL (30.0-36.0); Mean Corpuscular Hemoglobin 30.9 pg (28.0-34.0); Mean Corpuscular Volume 92.5 fl (81-99); Mean Platelet Volume 9.2 fL (7.4-10.4); Monocytes # 0.9 10^3/uL (0.2-0.9); Monocytes % 6.1 %; Neutrophils # 9.62 10^3/uL (1.8-7.7); Neutrophils % 66.3 %; Nucleated Red Blood Cells % 0 %; Platelet Count 451 10^3/cmm (130-400); Red Blood Count 4.79 10^6/uL (4.1-5.3); Red Cell Distribution Width 12.5 % (12.1-15.1); White Blood Count 14.5 10^3/uL (4.0-10.0)
[2022-09-15] MEDS: LORazepam 2 mg Tablet 1 MG PO (10:55)
[2022-09-15 11:04] LABS: Amphetamines Screen Urine Negative (Negative); Barbiturates Screen Urine Negative (Negative); Benzodiazepines Screen Urine Negative (Negative); Cocaine Screen Urine Negative (Negative); Opiate Screen Urine Negative (Negative); PCP Screen Urine Negative (Negative); THC Screen Urine Negative (Negative)
[2022-09-15 11:08] LABS: HCG, Serum Qual Negative (Negative)
[2022-09-15 11:09] LABS: Alanine Aminotransferase 22 U/L (0-33); Albumin Level 4.7 g/dL (3.5-5.2); Alcohol Level 215 mg/dL (0-10); Alkaline Phosphatase 109 U/L (35-105); Anion Gap 19.8 (5-19); Aspartate Amino Transferase 26 U/L (0-32); Blood Urea Nitrogen 15 mg/dL (6-20); Calcium 8.5 mg/dL (8.5-10.5); Carbon Dioxide 21 mmol/L (22-29); Chloride 99 mmol/L (98-107); Globulin 3.3 g/dL (1.3-4.6); Glomerular Filtration Rate 134.7 mL/min (90-130); Glucose 100 mg/dL (65-115); Osmolality Calculated 283 mOsm/kg (285-295); Potassium 3.8 mmol/L (3.5-5.1); Salicylate 0.4 mg/dL (3-10); Sodium 136 mmol/L (136-145); Total Bilirubin 0.2 mg/dL (0.15-1.2)
[2022-09-15 11:10] LABS: Acetaminophen < 5.0 ug/mL (10-30)
[2022-09-15] MEDS: nicotine 21 mg Patch 1 PATCH TRANSDERMA (11:37)
[2022-09-15] MEDS: OLANZapine 10 mg ODT PO (11:43)
[2022-09-15 12:52] VITALS: BP 141/100; PULSE 113; RESP 18; TEMP 36.9; O2SAT 95
[2022-09-15] MEDS: thiamine 100 mg Tablet PO (13:10)
[2022-09-15] MEDS: ondansetron 4 MG Tablet PO ×2 (13:10→20:57)
[2022-09-15] MEDS: LORazepam 2 mg Tablet PO ×2 (13:10→20:58)
[2022-09-15] MEDS: acetaminophen 325 mg Tablet 650 MG PO (13:10)
[2022-09-15] MEDS: folic acid 1 mg Tablet PO (13:10)
[2022-09-15] MEDS: multivitamin therapeutic Tablet 1 TAB PO (13:10)
[2022-09-15 14:00] VITALS: BP 141/100; PULSE 113; RESP 18; TEMP 36.9; O2SAT 95
--- NOTE | 2022-09-15 14:20 | PC.NURSE ---
Patient states she arrived at ER due to feeling she was getting crazy again. She stated she hasn't slept or ate in 4 days. She says she drinks a 5th of hard alcohol daily. She appears to be experiencing detox symptoms as she is sweating, reports a headache, and has tremors. Patient also vomited three times while this RN was conducting her assessment. Patient denied SI/HI and VH. She endorses hearing car doors opening and shutting. She states she has been taking doxepin for sleep and that it is not working. She also takes latuda and cymbalta but states it is not helping either. Patient states she has tried to get into [facility] for rehabilitation, but has been unable to do so due to their lack of communication. Patient calm and cooperative.
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
[2022-09-15] MEDS: baclofen 10 mg Tablet PO (18:06)
[2022-09-15] MEDS: lurasidone 20 mg Tablet 60 MG PO (18:06)
[2022-09-15] MEDS: buprenorphine-naloxone 4-1 mg Film 1 EACH SUBLINGUAL (18:07)
[2022-09-15] MEDS: OLANZapine 5 mg ODT PO (18:09)
--- NOTE | 2022-09-15 18:10 | PC.NURSE ---
PRN Warp Starter Patient presented to nurses' station nauseous and anxious. Patient has slight tremors and asked for something for her nerves. When presenting patient with the choice between zyprexa and ativan she stated she would rather have the zyprexa ODT 10mg.
[2022-09-15] MEDS: gabapentin 300 mg Capsule PO (20:30)
[2022-09-15 21:10] VITALS: BP 100/63; PULSE 95; RESP 16; TEMP 36.7; O2SAT 96
[2022-09-16] MEDS: ondansetron 4 MG Tablet PO (05:45)
[2022-09-16] MEDS: LORazepam 2 mg Tablet PO (05:45)
[2022-09-16] MEDS: folic acid 1 mg Tablet PO (09:39)
[2022-09-16] MEDS: gabapentin 300 mg Capsule PO ×3 (09:39→20:15)
[2022-09-16] MEDS: buprenorphine-naloxone 4-1 mg Film 1 EACH SUBLINGUAL (09:39)
[2022-09-16] MEDS: multivitamin therapeutic Tablet 1 TAB PO (09:39)
[2022-09-16] MEDS: thiamine 100 mg Tablet PO (09:39)
[2022-09-16] MEDS: duloxetine 60 mg Capsule PO (09:39)
[2022-09-16] MEDS: baclofen 10 mg Tablet PO ×2 (09:39→17:02)
[2022-09-16] MEDS: OLANZapine 5 mg ODT PO (13:59)
[2022-09-16 14:00] VITALS: BP 125/82; PULSE 80; RESP 17; TEMP 36.4; O2SAT 96
[2022-09-16] MEDS: nicotine 2 mg Gum BUCCAL ×2 (15:08→18:23)
[2022-09-16] MEDS: lurasidone 20 mg Tablet 60 MG PO (16:50)
[2022-09-16] MEDS: nicotine 21 mg Patch 1 PATCH TRANSDERMA (16:54)
[2022-09-16] MEDS: buprenorphine-naloxone 4-1 mg Film 2 EACH SUBLINGUAL (17:02)
--- NOTE | 2022-09-16 17:38 | W.PM.NPUPNS ---
Subjective NPU Subjective: Luly is a 42-year-old white female admitted with increased manic symptoms auditory hallucinations and increased anxiety. She had to continue to report hope that she might receive inpatient hospice hallucination for substance abuse if she had reported being unable to quell her desire for alcohol. She had reported continued anxiety symptoms. She had reported that she was on Suboxone 16 mg a day and not 8 mg a day as previously prescribed. She reported no suicidal thoughts at this time. She was able to attend groups. She had reported continued problems with sleep but states that her mind continues to race late at night. She had complained of continued depression as well. She was redirectable on the milieu. She had reported having extreme difficulties with managing her anxiety but stated that she understood that she could not be placed on benzodiazepines given her addiction history. Mental Status Exam MSE Comments: She is 42-year-old white female who appeared in mild to moderate distress she appeared anxious on interview with some increase psychomotor agitation noted. Her eye contact was fair there is no evidence of any abnormal involuntary motor movements tics or tremors appreciated. Mood was described as okay . Her affect appeared anxious but mood congruent. Her thought process was linear logical and goal-directed. Her thought content showed evidence of some suicidal ideation no active plan at this time. There was no evidence of homicidal ideation. She endorsed auditory hallucinations but did not appear to be responding internal stimuli. Her speech was normal in regards to rate rhythm and prosody. Her impulse control appeared poor. Her insight was limited. Her judgment was poor as well. Her recent and remote memory appeared grossly intact. Vitals/I&O/Wt Last Vital Signs Temp 97.5 F L 09/16/22 14:00 Pulse 80 09/16/22 14:00 Resp 17 09/16/22 14:00 BP 125/82 09/16/22 14:00 Pulse Ox 96 09/16/22 14:00 O2 Del Method 09/15/22 21:10 Weight last 48 hrs Weight 76.113 kg Data NPU 09/15/22 10:35 09/15/22 10:35 A&P Assessment and plan (1) Schizoaffective disorder: (2) Alcohol abuse: (3) Opioid dependence: Plan 42-year-old white female without history of schizoaffective disorder bipolar type currently experiencing an exacerbation of her symptoms including active psychosis depressed mood with an additional comorbidity of alcohol dependence. 1.? Continue latuda at 60mg at night with food to target bipolar depression. Increase Cymbalta 60mg daily to target anxiety. Suboxone dose confirmed to be 8mg/2mg bid, will change today. 2.? Encourage individual, group and milieu therapy 3.? Continue q-15 minute check for safety 4.? Recommend sober living treatment at the highest level of care to which the patient is willing to commit. 5. CIWA scale to monitor for alcohol withdrawal symptoms. Involuntary Hold Information 96 Hour Hold: 96 Hour Involuntary Admission: No Attestations NPU Medical Necessity Statement*: Inpatient hospitalization is medically necessary and the clinically appropriate intervention at this time. We will monitor medications and make changes as indicated. Patient will be in the hospital for over two midnights. Likely length of stay is 5-7 days. Coding Level of Care Code Established Pt Acute Code for Chg Fwd Patient Type Established History Problem Focused Exam Problem Focused Medical Decision Making Straight Forward Diagnoses Schizoaffective disorder F25.9 Alcohol abuse F10.10 Opioid dependence F11.20
[2022-09-16] MEDS: trazodone 50 mg Tablet PO (20:17)
[2022-09-16 20:52] VITALS: BP 108/65; PULSE 94; RESP 16; TEMP 36.7; O2SAT 94
[2022-09-17] MEDS: folic acid 1 mg Tablet PO (08:43)
[2022-09-17] MEDS: multivitamin therapeutic Tablet 1 TAB PO (08:43)
[2022-09-17] MEDS: thiamine 100 mg Tablet PO (08:43)
[2022-09-17] MEDS: baclofen 10 mg Tablet PO ×2 (08:43→17:20)
[2022-09-17] MEDS: gabapentin 300 mg Capsule PO ×3 (08:43→20:53)
[2022-09-17] MEDS: buprenorphine-naloxone 4-1 mg Film 2 EACH SUBLINGUAL ×2 (08:43→17:21)
[2022-09-17] MEDS: nicotine 2 mg Gum BUCCAL ×3 (08:43→18:57)
[2022-09-17] MEDS: duloxetine 60 mg Capsule PO (08:43)
[2022-09-17] MEDS: nicotine 21 mg Patch 1 PATCH TRANSDERMA (11:03)
[2022-09-17] MEDS: OLANZapine 5 mg ODT PO ×2 (11:03→17:22)
[2022-09-17] MEDS: haloperidol 5 mg Tablet PO (12:33)
--- NOTE | 2022-09-17 12:35 | PC.NURSE ---
PT APPROACHES NURSES STATION REQUESTING MEDS FOR MY NERVES , PT RECEIVED PRN ZYDIS LESS THEN ONE HOUR PRIOR TO THIS. INSTRUCTED PT IT WAS TOO SOON FOR ADMIN OF ZYDIS AND PT STATES SHE IS ON AN ALCOHOL THING CAUSE I'M AN ALCOHOLIC , PT HAS ASKED THIS NURSE EARLIER THIS MORNING SPECIALLY FOR ATIVAN, PT INSTRUCTED SHE IS NOT SCORING ON A CIWA SCALE AND NOT RECEIVING ATIVAN. PT GIVEN PO PRN HALDOL FOR REPORTED ANXIETY. WHEN THIS NURSE WALKED INTO PT ROOM SHE WAS ON KNEES WITH BUTTOCKS IN AIR, HEAD ON PILLOW. PT TOOK MEDS WITHOUT DIFF. PT INSTRUCTED TO REPORT TO THIS NURSE IF ANXIETY HASN'T IMPROVED WITHIN THE HOUR, PT VERB UNDERSTANDING
[2022-09-17 14:00] VITALS: BP 117/76; PULSE 101; RESP 18; TEMP 36.8; O2SAT 95
--- NOTE | 2022-09-17 17:14 | P.NPUPN_ITS ---
Subjective NPU Subjective: Harry is a 42-year-old white female admitted with increased manic symptoms auditory hallucinations and increased anxiety. She had reported intractable anxiety stating that she was having a panic attack this morning. She had continually requested Ativan for anxiety despite not having any clear scoring on the alcohol withdrawal scale. Patient was given Benadryl instead. She had reported sleep continuity disruption. She is continue to promote wanting to receive inpatient psychiatric treatment for her addiction issues but stated that she would never use alcohol if she was allowed to take her benzodiazepines. Patient was informed that benzodiazepines would likely not be an option given her history of alcohol misuse. She reports no suicidal thoughts at this time. She had continue to report depressed mood but denied any racing thoughts today. She reported no opiate withdrawal symptoms with the resumption of 16 mg a day of Suboxone. Mental Status Exam MSE Comments: She is 42-year-old white female who appeared moderate distress and she appeared anxious on interview with some increase psychomotor agitation noted. Her eye contact was fair there is no evidence of any abnormal involu ntary motor movements tics or tremors appreciated. Mood was described as terrible . Her affect appeared anxious but mood congruent. Her thought process was linear logical and goal-directed. Her thought content showed no evidence of suicidal ideation and no active plan at this time. There was no evidence of homicidal ideation. She endorsed auditory hallucinations but did not appear to be responding internal stimuli. Her speech was normal in regards to rate rhythm and prosody. Her impulse control appeared poor. Her insight was limited. Her judgment was poor as well. Her recent and remote memory appeared grossly intact. Vitals/I&O/Wt Last Vital Signs Temp 98.3 F 09/17/22 14:00 Pulse 101 H 09/17/22 14:00 Resp 18 09/17/22 14:00 BP 117/76 09/17/22 14:00 Pulse Ox 95 09/17/22 14:00 O2 Del Method 09/15/22 21:10 Data NPU 09/15/22 10:35 09/15/22 10:35 A&P Assessment and plan (1) Schizoaffective disorder: (2) Alcohol abuse: (3) Opioid dependence: Plan 42-year-old white female without history of schizoaffective disorder bipolar type currently experiencing an exacerbation of her symptoms including active psychosis depressed mood with an additional comorbidity of alcohol dependence. 1.? Continue latuda at 60mg at night with food to target bipolar depr ession. Continue Cymbalta 60mg daily to target anxiety. Suboxone dose confirmed to be 8mg/2mg bid, will change today. 2.? Encourage individual, group and milieu therapy 3.? Continue q-15 minute check for safety 4.? Recommend sober living treatment at the highest level of care to which the patient is willing to commit. 5. CIWA scale to monitor for alcohol withdrawal symptoms. Involuntary Hold Information 96 Hour Hold: 96 Hour Involuntary Admission: No Attestations NPU Medical Necessity Statement*: Inpatient hospitalization is medically necessary and the clinically appropriate intervention at this time. We will monitor medications and make changes as indicated. Her likely length of stay is 5-7 days. Coding Level of Care Code Established Pt Acute Code for Chg Fwd Patient Type Established History Problem Focused Exam Problem Focused Medical Decision Making Straight Forward Diagnoses Schizoaffective disorder F25.9 Alcohol abuse F10.10 Opioid dependence F11.20
[2022-09-17] MEDS: lurasidone 20 mg Tablet 60 MG PO (17:20)
--- NOTE | 2022-09-17 17:29 | PC.NURSE ---
PT TO NURSES STATION REQUESTING MEDS FOR ANXIETY, STATES IM TIRED OF WAKING UP HAVING PANIC ATTACKS PRN ZYDIS GIVEN WITH SCHEDULOED MEDS, INSTRUCTED PT TO USED CALM DEEP BREATHING TECH, PT DEMONSTRATED DEEP BREATHING TO THIS NURSE
[2022-09-17] MEDS: docusate sodium 100 mg Capsule PO (18:24)
[2022-09-17] MEDS: trazodone 50 mg Tablet PO (20:58)
[2022-09-17 21:04] VITALS: BP 108/71; PULSE 83; RESP 16; TEMP 37; O2SAT 93
[2022-09-18] MEDS: buprenorphine-naloxone 4-1 mg Film 2 EACH SUBLINGUAL ×2 (08:38→14:29)
[2022-09-18] MEDS: thiamine 100 mg Tablet PO (08:38)
[2022-09-18] MEDS: multivitamin therapeutic Tablet 1 TAB PO (08:38)
[2022-09-18] MEDS: duloxetine 60 mg Capsule PO (08:38)
[2022-09-18] MEDS: baclofen 10 mg Tablet PO ×2 (08:38→16:51)
[2022-09-18] MEDS: gabapentin 300 mg Capsule PO ×3 (08:38→21:40)
[2022-09-18] MEDS: folic acid 1 mg Tablet PO (08:39)
[2022-09-18] MEDS: OLANZapine 5 mg ODT PO ×2 (08:53→16:51)
[2022-09-18] MEDS: magnesium hydroxide 30 mL UDC PO ×2 (12:35→20:45)
[2022-09-18 14:00] VITALS: BP 117/81; PULSE 94; RESP 18; TEMP 37.1; O2SAT 93
[2022-09-18] MEDS: nicotine 2 mg Gum BUCCAL ×3 (14:19→19:21)
[2022-09-18] MEDS: lurasidone 20 mg Tablet 60 MG PO (16:48)
[2022-09-18] MEDS: ondansetron 4 MG Tablet PO (19:08)
[2022-09-18] MEDS: LORazepam 2 mg Tablet PO (19:08)
--- NOTE | 2022-09-18 19:09 | PC.NURSE ---
Ciwa score of 19, administered Ativan 2 mg PO pt experiencing AH/VH.
--- NOTE | 2022-09-18 20:14 | P.NPUPN_ITS ---
Subjective NPU Subjective: Patient presented today reporting that she has not been sleeping well. We discussed risks, benefits and alternatives of increasing her doxepin to 50 mg p.o. nightly as well as starting BuSpar 15 mg p.o. twice daily for her anxiety that she reports has been really bad. We discussed missing work today that she was except that currently. They gave her a proposed bed date of 09/30/2022 and reportedly she was on the list to bump up with any cancellations or early discharges. We agreed to discuss a plan for the next 12 days with the treatment team in the morning. Mental Status Exam MSE Comments: This is an overweight white female in hospital scrubs with adequate grooming and eye contact. No abnormal movements except mild psychomotor retardation. Cooperative with exam in no acute distress. Speech was normal rate and volume. Mood described as anxious, affect congruent. Thought process organized. Thought content: Her eye contact was fair there is no evidence of any abnormal involuntary motor movements tics or tremors appreciated. Patient denied suicidal ideation and no active plan at this time. There was no evidence of homicidal ideation. She denied delusions and none were noted. She denied auditory or visual hallucinations and did not appear to be responding internal stimuli. Attention and concentration were intact and memory appeared reliable but none were formally tested. Alert and oriented x3.. Her impulse control appeared poor. Insight is improving, judgment limited, and impulse control is appropriate in the hospital but guarded in the community. Vitals/I&O/Wt Last Vital Signs Temp 98.4 F 09/18/22 20:26 Pulse 90 09/18/22 20:26 Resp 18 09/18/22 20:26 BP 115/76 09/18/22 20:26 Pulse Ox 92 09/18/22 20:26 O2 Del Method 09/18/22 20:26 Data NPU 09/15/22 10:35 09/15/22 10:35 A&P Assessment and plan (1) Schizoaffective disorder: (2) Alcohol abuse: (3) Opioid dependence: Plan 42-year-old white female without history of schizoaffective disorder bipolar type currently experiencing an exacerbation of her symptoms including active psychosis depressed mood with an additional comorbidity of alcohol dependence. 1.? Continue latuda at 60mg at night with food to target bipolar depression. Continue Cymbalta 60mg daily to target anxiety. Suboxone dose confirmed to be 8mg/2mg bid, will change today. Increase doxepin to 50 mg p.o. nightly and add BuSpar 15 mg p.o. twice daily. 2.? Encourage individual, group and milieu therapy 3.? Continue q-15 minute check for safety 4.? Recommend sober living treatment at the highest level of care to which the patient is willing to commit. Accepted at [facility] [place] on 09/30/2032 we will discuss how to manage the 12 days until then. 5. CIWA scale to monitor for alcohol withdrawal symptoms. Involuntary Hold Information 96 Hour Hold: 96 Hour Involuntary Admission: No Attestations NPU Medical Necessity Statement*: Inpatient hospitalization is medically necessary and the clinically appropriate intervention at this time. We will monitor medications and make changes as indicated. Her likely length of stay is 4-6 days. We will discuss the viability of her sobriety if she were discharged home versus directly to the rehab. Coding Level of Care Code Acute Code for [facility] Diagnoses Schizoaffective disorder F25.9 Alcohol abuse F10.10 Opioid dependence F11.20
[2022-09-18 20:26] VITALS: BP 115/76; PULSE 90; RESP 18; TEMP 36.9; O2SAT 92
[2022-09-18] MEDS: doxepin 25 mg Capsule 50 MG PO (21:40)
[2022-09-18] MEDS: trazodone 50 mg Tablet PO (21:44)
[2022-09-18] MEDS: BuSPIRONE 10 mg Tablet 15 MG PO (21:44)
[2022-09-19 06:00] VITALS: BP 125/87; PULSE 106; RESP 18; TEMP 36.6; O2SAT 92
[2022-09-19] MEDS: duloxetine 60 mg Capsule PO (07:46)
[2022-09-19] MEDS: buprenorphine-naloxone 4-1 mg Film 2 EACH SUBLINGUAL ×2 (07:46→15:47)
[2022-09-19] MEDS: BuSPIRONE 10 mg Tablet 15 MG PO ×2 (07:46→17:20)
[2022-09-19] MEDS: baclofen 10 mg Tablet PO ×2 (07:47→17:20)
[2022-09-19] MEDS: thiamine 100 mg Tablet PO (07:47)
[2022-09-19] MEDS: folic acid 1 mg Tablet PO (07:47)
[2022-09-19] MEDS: multivitamin therapeutic Tablet 1 TAB PO (07:47)
[2022-09-19] MEDS: gabapentin 300 mg Capsule PO ×3 (07:47→20:57)
[2022-09-19] MEDS: nicotine 2 mg Gum BUCCAL ×2 (10:32→21:03)
[2022-09-19] MEDS: OLANZapine 5 mg ODT PO (10:32)
[2022-09-19] MEDS: LORazepam 2 mg Tablet PO ×2 (11:01→19:18)
--- NOTE | 2022-09-19 11:03 | PC.NURSE ---
Administered Ativan 2mg PO for pt scoring 16 on CIWA.
[2022-09-19] MEDS: nicotine 21 mg Patch 1 PATCH TRANSDERMA (13:04)
[2022-09-19 14:00] VITALS: BP 130/83; PULSE 92; RESP 18; TEMP 36.6; O2SAT 97
[2022-09-19] MEDS: lurasidone 20 mg Tablet 60 MG PO (17:19)
[2022-09-19] MEDS: ondansetron 4 MG Tablet PO (17:23)
--- NOTE | 2022-09-19 18:57 | P.NPUPN_ITS ---
Subjective NPU Subjective: Candelaria presented today reporting that she is struggling with her anxiety. After a long drawn out conversation it certainly appeared that her suggestion was that Ativan was an appropriate solution as the only thing that worked. We discussed her recovery and going to [facility] on September 30 and the fact that there would be no role for Ativan in her treatment in that setting or long-term. Reports that BuSpar was ineffective. Talked about propranolol which she reports was also ineffective and we agreed we continue to monitor and consider alternative interventions. Mental Status Exam MSE Comments: This is an overweight white female in hospital scrubs with adequate grooming and eye contact. No abnormal movements except mild psychomotor retardation. Cooperative with exam in mild distress. Speech was normal rate and volume. Mood described as anxious, affect congruent. Thought process organized. Thought content: Her eye contact was fair there is no evidence of any abnormal involuntary motor movements tics or tremors appreciated. Patient denied suicidal ideation and no active plan at this time. There was no evidence of homicidal ideation. She denied delusions and none were noted. She denied auditory or visual hallucinations and did not appear to be responding internal stimuli. Attention and concentration were intact and memory appeared reliable but none were formally tested. Alert and oriented x3.. Her impulse control appeared poor. Insight is improving, judgment limited, and impulse control is appropriate in the hospital but guarded in the community. Vitals/I&O/Wt Last Vital Signs Temp 97.7 F 09/19/22 21:27 Pulse 115 H 09/19/22 21:27 Resp 18 09/19/22 21:27 BP 111/78 09/19/22 21:27 Pulse Ox 95 09/19/22 21:27 O2 Del Method 09/19/22 21:27 Data NPU 09/15/22 10:35 09/15/22 10:35 A&P Assessment and plan (1) Schizoaffective disorder: (2) Alcohol abuse: (3) Opioid dependence: Plan 42-year-old white female without history of schizoaffective disorder bipolar type currently experiencing an exacerbation of her symptoms including active psychosis depressed mood with an additional comorbidity of alcohol dependence. 1.? Continue latuda at 60mg at night with food to target bipolar depression. Continue Cymbalta 60mg daily to target anxiety. Suboxone dose confirmed to be 8mg/2mg bid, will change today. Increased doxepin to 50 mg p.o. nightly and increase BuSpar 15 mg p.o. twice daily to 3 times daily. 2.? Encourage individual, group and milieu therapy 3.? Continue q-15 minute check for safety 4.? Recommend sober living treatment at the highest level of care to which the patient is willing to commit. Accepted at [facility] on 09/30/2032 we will discuss how to manage the 12 days until then. 5. CIWA scale to monitor for alcohol withdrawal symptoms. Involuntary Hold Information 96 Hour Hold: 96 Hour Involuntary Admission: No Attestations NPU Medical Necessity Statement*: Inpatient hospitalization is medically necessary and the clinically appropriate intervention at this time. We will monitor medications and make changes as indicated. Her likely length of stay is 3-5 days. We will discuss the viability of her sobriety if she were discharged home versus directly to the rehab. Coding Level of Care Code Acute Code for [facility] Diagnoses Schizoaffective disorder F25.9 Alcohol abuse F10.10 Opioid dependence F11.20
[2022-09-19] MEDS: acetaminophen 325 mg Tablet 650 MG PO (20:57)
[2022-09-19] MEDS: alum-mag-hydroxide-sime 30 mL UDC PO (20:58)
[2022-09-19] MEDS: trazodone 50 mg Tablet PO (20:59)
[2022-09-19] MEDS: doxepin 25 mg Capsule 50 MG PO (20:59)
[2022-09-19] MEDS: haloperidol 5 mg Tablet PO (21:02)
[2022-09-19 21:27] VITALS: BP 111/78; PULSE 115; RESP 18; TEMP 36.5; O2SAT 95
[2022-09-19 21:45] LABS: Bilirubin Urine Neg (Negative); Blood Urine Neg (Negative); Glucose Urine UA Norm (Normal); Ketones Urine Negative (Negative); Leukocyte Esterase Urine Negative (Negative); Nitrate Urine Negative (Negative); Protein Urine Neg (Negative); Specific Gravity, Urine 1.005 (1.005-1.030); Urine Appearance Clear (CLEAR); Urine Color Yellow (Yellow); Urobilinogen Urine Neg (Negative); pH Urine 7 (5-7)
[2022-09-19 21:47] LABS: Add Urine Culture? No; Bacteria Urine 1+ /hpf; Mucus Urine TRACE /hpf; RBC Urine 0-4 /hpf (0-2); WBC Urine 0-4 /hpf (0-5)
[2022-09-20] MEDS: buprenorphine-naloxone 4-1 mg Film 2 EACH SUBLINGUAL ×2 (06:32→15:13)
[2022-09-20] MEDS: OLANZapine 5 mg ODT PO ×2 (08:10→21:55)
[2022-09-20] MEDS: multivitamin therapeutic Tablet 1 TAB PO (08:10)
[2022-09-20] MEDS: thiamine 100 mg Tablet PO (08:11)
[2022-09-20] MEDS: baclofen 10 mg Tablet PO ×2 (08:11→17:47)
[2022-09-20] MEDS: duloxetine 60 mg Capsule PO (08:11)
[2022-09-20] MEDS: folic acid 1 mg Tablet PO (08:11)
[2022-09-20] MEDS: gabapentin 300 mg Capsule PO ×3 (08:11→21:52)
[2022-09-20] MEDS: BuSPIRONE 10 mg Tablet 15 MG PO ×3 (08:11→21:54)
[2022-09-20] MEDS: nicotine 21 mg Patch 1 PATCH TRANSDERMA (08:13)
[2022-09-20] MEDS: haloperidol 5 mg Tablet PO ×3 (08:30→23:10)
--- NOTE | 2022-09-20 08:34 | PC.NURSE ---
Pt up in day room at start of shift. Appeared in good spirits, visiting with another pt Approximately 20 minutes later pt came to nurses station saying she was having anxiety which she felt was going to escalate into a panic attack. Discussed relaxation techniques. Pt reports she tried them already. Pt given medication along with zyprexa. Walked with pt down to her room. Pt said she wasn't going to eat unless she could eat in her room. Pt redirected and encouraged to eat in the area near the desk as no one was there. Pt stayed in her room until staff gave her additional medication for her agitation (Haldol po) and then she came out to eat. Pt tearful at times, asking what she could have if this didn't work. Reassurance given.
[2022-09-20] MEDS: LORazepam 2 mg Tablet PO (09:32)
--- NOTE | 2022-09-20 10:12 | PC.NURSE ---
Pt up and about; much improved from earlier. No longer appears anxious, but does appear depressed. No longer shaking. Pt able to color now. Apologized for her behavior earlier. Staff had attempted to redirect pt earlier without success. Pt want something to make me sleep. Pt unable to identify any triggering factor to her anxiety; just wants it to go away. Pt said she didn't know why we weren't trying to help her and why we had to try all of the other meds when the white pill was the one that worked. Pt reports to not sleeping well because she has nightmares and claims no one is helping her with that either. Pt encouraged to talk with the MD about her requests. Pt verbalized her understanding.
[2022-09-20] MEDS: docusate sodium 100 mg Capsule PO (10:15)
--- NOTE | 2022-09-20 13:40 | W.PM.NPUPNS ---
Subjective NPU Subjective: Patient presented today fairly focused on her anxiety and reporting that it is overwhelming with [id number] anxiety attack/panic attacks. We discussed the fact that the solution she cannot driving towards of a benzodiazepine which does not in keeping with a reasonable treatment plan the given her addiction issues. We discussed the fact that she was going to have to follow CBT and other anxiety techniques that could make a significant impact on the situation because a bit of a at this point and even long-term seems to have worsening affect not better. We continued to discuss how to manage her time leading up to 09/30/2022 for rehab will check on Thursday for any updates in availability. Mental Status Exam MSE Comments: This is an overweight white female in hospital scrubs with adequate grooming and eye contact. No abnormal movements except mild psychomotor retardation. Cooperative with exam in mild distress. Speech was normal rate and volume. Mood described as still anxious and having frequent panic attacks, affect congruent. Thought process organized. Thought content: Her eye contact was fair there is no evidence of any abnormal involuntary motor movements tics or tremors appreciated. Patient denied suicidal ideation and no active plan at this time. There was no evidence of homicidal ideation. She denied delusions and none were noted. She denied auditory or visual hallucinations and did not appear to be responding internal stimuli. Attention and concentration were intact and memory appeared reliable but none were formally tested. Alert and oriented x3.. Her impulse control appeared poor. Insight is improving, judgment limited, and impulse control is appropriate in the hospital but guarded in the community. Vitals/I&O/Wt Last Vital Signs Temp 97.7 F 09/19/22 21:27 Pulse 115 H 09/19/22 21:27 Resp 18 09/19/22 21:27 BP 111/78 09/19/22 21:27 Pulse Ox 95 09/19/22 21:27 O2 Del Method 09/19/22 21:27 Data NPU 09/15/22 10:35 09/15/22 10:35 A&P Assessment and plan (1) Schizoaffective disorder: (2) Alcohol abuse: (3) Opioid dependence: Plan 42-year-old white female without history of schizoaffective disorder bipolar type currently experiencing an exacerbation of her symptoms including active psychosis depressed mood with an additional comorbidity of alcohol dependence. 1.? Continue latuda at 60mg at night with food to target bipolar depression. Continue Cymbalta 60mg daily to target anxiety. Suboxone dose confirmed to be 8mg/2mg bid, will change today. Increased doxepin to 50 mg p.o. nightly and increased BuSpar 15 mg p.o.to 3 times daily. 2.? Encourage individual, group and milieu therapy 3.? Continue q-15 minute check for safety 4.? Recommend sober living treatment at the highest level of care to which the patient is willing to commit. Accept[facility] at [facility] on 09/30/2032 we will discuss how to manage the 9 days until then. 5. CIWA scale to monitor for alcohol withdrawal symptoms. Involuntary Hold Information 96 Hour Hold: 96 Hour Involuntary Admission: No Attestations NPU Medical Necessity Statement*: Inpatient hospitalization is medically necessary and the clinically appropriate intervention at this time. We will monitor medications and make changes as indicated. Her likely length of stay is 2-4 days. We will discuss the viability of her sobriety if she were discharged home versus directly to the rehab. Coding Level of Care Code Acute Code for [facility] Fwd Diagnoses Schizoaffective disorder F25.9 Alcohol abuse F10.10 Opioid dependence F11.20
[2022-09-20 14:00] VITALS: BP 118/76; PULSE 88; RESP 18; TEMP 36.6; O2SAT 98
[2022-09-20] MEDS: nicotine 2 mg Gum BUCCAL ×3 (15:40→21:55)
[2022-09-20] MEDS: lurasidone 20 mg Tablet 60 MG PO (17:47)
[2022-09-20] MEDS: magnesium hydroxide 30 mL UDC PO (17:51)
[2022-09-20] MEDS: doxepin 25 mg Capsule 50 MG PO (21:52)
[2022-09-20] MEDS: trazodone 50 mg Tablet PO (21:55)
[2022-09-20 22:00] VITALS: BP 116/82; PULSE 105; RESP 16; TEMP 36.6; O2SAT 95
[2022-09-21] MEDS: prazosin 1 mg Capsule PO ×2 (02:32→20:32)
[2022-09-21 06:00] VITALS: BP 129/83; PULSE 106; RESP 18; TEMP 37; O2SAT 95
[2022-09-21] MEDS: buprenorphine-naloxone 4-1 mg Film 2 EACH SUBLINGUAL ×2 (09:47→14:38)
[2022-09-21] MEDS: folic acid 1 mg Tablet PO (09:48)
[2022-09-21] MEDS: multivitamin therapeutic Tablet 1 TAB PO (09:48)
[2022-09-21] MEDS: gabapentin 300 mg Capsule PO ×3 (09:48→20:32)
[2022-09-21] MEDS: thiamine 100 mg Tablet PO (09:48)
[2022-09-21] MEDS: baclofen 10 mg Tablet PO ×2 (09:48→17:12)
[2022-09-21] MEDS: duloxetine 60 mg Capsule PO (09:48)
[2022-09-21] MEDS: BuSPIRONE 10 mg Tablet 15 MG PO ×3 (09:48→20:32)
[2022-09-21] MEDS: nicotine 2 mg Gum BUCCAL ×3 (11:44→17:12)
--- NOTE | 2022-09-21 13:43 | W.PM.NPUPNS ---
Subjective NPU Subjective: Patient presented today reporting that she still struggling with the anxiety piece. She is taking the Haldol as she reports that it is helping and we discussed the risks, benefits and alternatives of starting it as a standing dose to see if she can avoid getting in an anxiety Loop. We agreed we would work with the treatment team on Thursday to figure out if she had any chance of getting into [facility] earlier and if so consider her staying until the earlier date but if not looking to discharge in the next couple of days. Mental Status Exam MSE Comments: This is an overweight white female in hospital scrubs with adequate grooming and eye contact. No abnormal movements except mild psychomotor retardation. Cooperative with exam in mild distress. Speech was normal rate and volume. Mood described as a tiny bit better, affect congruent. Thought process organized. Thought content: Her eye contact was fair there is no evidence of any abnormal involuntary motor movements tics or tremors appreciated. Patient denied suicidal ideation and no active plan at this time. There was no evidence of homicidal ideation. She denied delusions and none were noted. She denied auditory or visual hallucinations and did not appear to be responding internal stimuli. Attention and concentration were intact and memory appeared reliable but none were formally tested. Alert and oriented x3.. Her impulse control appeared poor. Insight is improving, judgment limited, and impulse control is appropriate in the hospital but guarded in the community. Vitals/I&O/Wt Last Vital Signs Temp 98.6 F 09/21/22 06:00 Pulse 106 H 09/21/22 06:00 Resp 18 09/21/22 06:00 BP 129/83 09/21/22 06:00 Pulse Ox 95 09/21/22 06:00 O2 Del Method 09/21/22 06:00 Weight last 48 hrs Weight 85.729 kg Data NPU 09/15/22 10:35 09/15/22 10:35 A&P Assessment and plan (1) Schizoaffective disorder: (2) Alcohol abuse: (3) Opioid dependence: Plan 42-year-old white female without history of schizoaffective disorder bipolar type currently experiencing an exacerbation of her symptoms including active psychosis depressed mood with an additional comorbidity of alcohol dependence. 1.? Continue latuda at 60mg at night with food to target bipolar depression. Continue Cymbalta 60mg daily to target anxiety. Suboxone dose confirmed to be 8mg/2mg bid, will change today. Increased doxepin to 50 mg p.o. nightly and increased BuSpar 15 mg p.o.to 3 times daily. Haldol 5 mg p.o. twice daily but consider doing smaller doses if too lethargic. 2.? Encourage individual, group and milieu therapy 3.? Continue q-15 minute check for safety 4.? Recommend sober living treatment at the highest level of care to which the patient is willing to commit. Accepted at [facility] on 09/30/2032 we will discuss how to manage the 9 days until then. 5. CIWA scale to monitor for alcohol withdrawal symptoms. Involuntary Hold Information 96 Hour Hold: 96 Hour Involuntary Admission: No Attestations NPU Medical Necessity Statement*: Inpatient hospitalization is medically necessary and the clinically appropriate intervention at this time. We will monitor medications and make changes as indicated. Her likely length of stay is 1-3 days. We will discuss the viability of her sobriety if she were discharged home versus directly to the rehab. Coding Level of Care Code Acute Code for [facility] Fwd Diagnoses Schizoaffective disorder F25.9 Alcohol abuse F10.10 Opioid dependence F11.20
[2022-09-21 14:00] VITALS: BP 96/58; PULSE 79; RESP 18; TEMP 36.7; O2SAT 95
[2022-09-21] MEDS: haloperidol 5 mg Tablet PO (15:37)
[2022-09-21] MEDS: lurasidone 20 mg Tablet 60 MG PO (17:12)
[2022-09-21 20:18] VITALS: RESP 16
[2022-09-21] MEDS: trazodone 50 mg Tablet PO (20:32)
[2022-09-21] MEDS: doxepin 25 mg Capsule 50 MG PO (20:32)
[2022-09-22] MEDS: nicotine 2 mg Gum BUCCAL ×3 (07:43→15:26)
[2022-09-22] MEDS: multivitamin therapeutic Tablet 1 TAB PO (08:32)
[2022-09-22] MEDS: folic acid 1 mg Tablet PO (08:32)
[2022-09-22] MEDS: baclofen 10 mg Tablet PO ×2 (08:32→17:41)
[2022-09-22] MEDS: duloxetine 60 mg Capsule PO (08:32)
[2022-09-22] MEDS: BuSPIRONE 10 mg Tablet 15 MG PO ×3 (08:32→20:42)
[2022-09-22] MEDS: buprenorphine-naloxone 4-1 mg Film 2 EACH SUBLINGUAL ×2 (08:32→14:00)
[2022-09-22] MEDS: thiamine 100 mg Tablet PO (08:32)
[2022-09-22] MEDS: gabapentin 300 mg Capsule PO ×3 (08:32→20:41)
[2022-09-22] MEDS: OLANZapine 5 mg ODT PO ×2 (09:01→16:05)
[2022-09-22] MEDS: haloperidol 1 mg Tablet 2 MG PO ×2 (10:57→20:42)
[2022-09-22 14:00] VITALS: BP 97/69; PULSE 88; RESP 18; TEMP 36.9; O2SAT 96
--- NOTE | 2022-09-22 17:12 | P.NPUPN_ITS ---
Subjective NPU Subjective: Patient presented today reporting that things are going better in general. She is optimistic about her ability for success and facing her recovery and going to [facility]. We discussed that we will attempt to contact them again tomorrow to get a sense of what opening exist and then planning on discharge based on that information. She reported to managing her medication well and eating fine and sleeping better. Mental Status Exam MSE Comments: This is an overweight white female in hospital scrubs with adequate grooming and eye contact. No abnormal movements except mild psychomotor retardation. Cooperative with exam in no acute distress. Speech was normal rate and volume. Mood described as a little better, affect congruent. Thought process organized. Thought content: Her eye contact was fair there is no evidence of any abnormal involuntary motor movements tics or tremors appreciated. Patient denied suicidal ideation and no active plan at this time. There was no evidence of homicidal ideation. She denied delusions and none were noted. She denied auditory or visual hallucinations and did not appear to be responding internal stimuli. Attention and concentration were int act and memory appeared reliable but none were formally tested. Alert and oriented x3. Insight is improving, judgment limited, and impulse control is appropriate in the hospital but guarded in the community. Vitals/I&O/Wt Last Vital Signs Temp 98.5 F 09/22/22 14:00 Pulse 88 09/22/22 14:00 Resp 18 09/22/22 14:00 BP 97/69 09/22/22 14:00 Pulse Ox 96 09/22/22 14:00 O2 Del Method 09/21/22 06:00 Data NPU 09/15/22 10:35 09/15/22 10:35 A&P Assessment and plan (1) Schizoaffective disorder: (2) Alcohol abuse: (3) Opioid dependence: Plan 42-year-old white female without history of schizoaffective disorder bipolar type currently experiencing an exacerbation of her symptoms including active psychosis depressed mood with an additional comorbidity of alcohol dependence. 1.? Continue latuda at 60mg at night with food to target bipolar depression. Continue Cymbalta 60mg daily to target anxiety. Suboxone dose confirmed to be 8mg/2mg bid, will change today. Increased doxepin to 50 mg p.o. nightly and increased BuSpar 15 mg p.o.to 3 times daily. Haldol 5 mg p.o. twice daily but consider doing smaller doses if too lethargic. 2.? Encourage individual, group and milieu therapy 3.? Continue q-15 minute check for safety 4.? Recommend sober living treatment at the highest level of care to which the patient is willing to commit. Accepted at [facility] on 09/30/2032 we will contact clinic we can find out if there is any chance for a earlier bed date and is not likely discharge in the next 48 hours. Involuntary Hold Information 96 Hour Hold: 96 Hour Involuntary Admission: No Attestations NPU Medical Necessity Statement*: Inpatient hospitalization is medically necessary and the clinically appropriate intervention at this time. We will monitor medications and make changes as indicated. Her likely length of stay is 1-2 days. We will discuss the viability of her sobriety if she were discharged home versus directly to the rehab. Coding Level of Care Code Acute Code for [facility] Diagnoses Schizoaffective disorder F25.9 Alcohol abuse F10.10 Opioid dependence F11.20
[2022-09-22] MEDS: lurasidone 20 mg Tablet 60 MG PO (17:41)
[2022-09-22 20:21] VITALS: RESP 18
[2022-09-22] MEDS: prazosin 1 mg Capsule PO (20:41)
[2022-09-22] MEDS: doxepin 25 mg Capsule 50 MG PO (20:41)
[2022-09-23] MEDS: buprenorphine-naloxone 4-1 mg Film 2 EACH SUBLINGUAL ×2 (05:51→15:15)
[2022-09-23] MEDS: folic acid 1 mg Tablet PO (08:23)
[2022-09-23] MEDS: haloperidol 1 mg Tablet 2 MG PO ×3 (08:23→20:37)
[2022-09-23] MEDS: BuSPIRONE 10 mg Tablet 15 MG PO ×3 (08:23→20:31)
[2022-09-23] MEDS: multivitamin therapeutic Tablet 1 TAB PO (08:23)
[2022-09-23] MEDS: duloxetine 60 mg Capsule PO (08:24)
[2022-09-23] MEDS: baclofen 10 mg Tablet PO ×2 (08:24→17:31)
[2022-09-23] MEDS: gabapentin 300 mg Capsule PO ×3 (08:24→20:35)
[2022-09-23] MEDS: thiamine 100 mg Tablet PO (08:24)
[2022-09-23] MEDS: nicotine 2 mg Gum BUCCAL ×3 (08:32→18:08)
[2022-09-23] MEDS: ondansetron 4 MG Tablet PO (09:00)
[2022-09-23] MEDS: docusate sodium 100 mg Capsule PO (09:08)
[2022-09-23] MEDS: OLANZapine 5 mg ODT PO (13:18)
[2022-09-23 14:00] VITALS: BP 115/74; PULSE 94; RESP 17; TEMP 36.9; O2SAT 93
[2022-09-23] MEDS: lurasidone 20 mg Tablet 60 MG PO (17:30)
--- NOTE | 2022-09-23 17:43 | W.PM.NPUPNS ---
Subjective NPU Subjective: . Patient is in today reporting that she is doing optimistic about her 09/30/2022 currently bed date. She assures content writer that she will be at the facility on that day. She reports that she would also be willing to stay. We discussed the fact that we were advised today that they do not anticipate having a bed available prior to that. We agreed we would speak after morning meeting and consider discharge in the morning. Mental Status Exam MSE Comments: This is an overweight white female in hospital scrubs with adequate grooming and eye contact. No abnormal movements except mild psychomotor retardation. Cooperative with exam in no acute distress. Speech was normal rate and volume. Mood described as a little better, affect congruent. Thought process organized. Thought content: Her eye contact was fair there is no evidence of any abnormal involuntary motor movements tics or tremors appreciated. Patient denied suicidal ideation and no active plan at this time. There was no evidence of homicidal ideation. She denied delusions and none were noted. She denied auditory or visual hallucinations and did not appear to be responding internal stimuli. Attention and concentration were intact and memory appeared reliable but none were formally tested. Alert and oriented x3. Insight is improving, judgment limited, and impulse control is appropriate in the hospital but guarded in the community. Vitals/I&O/Wt Last Vital Signs Temp 97.9 F 09/23/22 19:22 Pulse 110 H 09/23/22 19:22 Resp 18 09/23/22 19:22 BP 117/71 09/23/22 19:22 Pulse Ox 95 09/23/22 19:22 O2 Del Method 09/23/22 19:22 09/23/22 14:59 Intake Total Balance Data NPU 09/15/22 10:35 09/15/22 10:35 A&P Assessment and plan (1) Schizoaffective disorder: (2) Alcohol abuse: (3) Opioid dependence: Plan 42-year-old white female without history of schizoaffective disorder bipolar type currently experiencing an exacerbation of her symptoms including active psychosis depressed mood with an additional comorbidity of alcohol dependence. 1.? Continue latuda at 60mg at night with food to target bipolar depression. Continue Cymbalta 60mg daily to target anxiety. Suboxone dose confirmed to be 8mg/2mg bid, will change today. Increased doxepin to 50 mg p.o. nightly and increased BuSpar 15 mg p.o.to 3 times daily. Haldol 5 mg p.o. twice daily but consider doing smaller doses if too lethargic. 2.? Encourage individual, group and milieu therapy 3.? Continue q-15 minute check for safety 4.? Recommend sober living treatment at the highest level of care to which the patient is willing to commit. Accepted at [facility] on 09/30/2032 we will contact clinic we can find out if there is any chance for a earlier bed date and is not likely discharge in the next 24 hours. Involuntary Hold Information 96 Hour Hold: 96 Hour Involuntary Admission: No Attestations NPU Medical Necessity Statement*: Inpatient hospitalization is medically necessary and the clinically appropriate intervention at this time. We will monitor medications and make changes as indicated. Her likely length of stay is 1-2 days. We will discuss the viability of her sobriety if she were discharged home versus directly to the rehab. Coding Level of Care Code Acute Code for [facility] Diagnoses Schizoaffective disorder F25.9 Alcohol abuse F10.10 Opioid dependence F11.20
[2022-09-23 19:22] VITALS: BP 117/71; PULSE 110; RESP 18; TEMP 36.6; O2SAT 95
[2022-09-23] MEDS: alum-mag-hydroxide-sime 30 mL UDC PO (19:50)
[2022-09-23] MEDS: doxepin 25 mg Capsule 50 MG PO (20:31)
[2022-09-23] MEDS: trazodone 50 mg Tablet PO (20:32)
[2022-09-23] MEDS: prazosin 1 mg Capsule PO (20:32)
[2022-09-24] MEDS: buprenorphine-naloxone 4-1 mg Film 2 EACH SUBLINGUAL ×2 (08:01→14:01)
[2022-09-24] MEDS: thiamine 100 mg Tablet PO (09:06)
[2022-09-24] MEDS: baclofen 10 mg Tablet PO (09:06)
[2022-09-24] MEDS: folic acid 1 mg Tablet PO (09:06)
[2022-09-24] MEDS: duloxetine 60 mg Capsule PO (09:07)
[2022-09-24] MEDS: BuSPIRONE 10 mg Tablet 15 MG PO (09:07)
[2022-09-24] MEDS: nicotine 2 mg Gum BUCCAL ×2 (09:07→11:04)
[2022-09-24] MEDS: gabapentin 300 mg Capsule PO (09:07)
[2022-09-24] MEDS: multivitamin therapeutic Tablet 1 TAB PO (09:07)
[2022-09-24] MEDS: haloperidol 1 mg Tablet 2 MG PO (09:10)
[2022-09-24] MEDS: acetaminophen 325 mg Tablet 650 MG PO (09:34)
[2022-09-24 11:07] LABS: Add Urine Microscopic? NO; Charge for UA Resulting for Rev
[2022-09-24 11:15] LABS: Bilirubin Urine Neg (Negative); Blood Urine Neg (Negative); Glucose Urine UA Norm (Normal); Ketones Urine Negative (Negative); Leukocyte Esterase Urine Negative (Negative); Nitrate Urine Negative (Negative); Protein Urine Neg (Negative); Urine Appearance Clear (CLEAR); Urine Color Yellow (Yellow); Urobilinogen Urine Neg (Negative); pH Urine 6 (5-7)
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
[2022-09-24 13:52] VITALS: BP 117/71; PULSE 110; RESP 18; TEMP 36.6; O2SAT 95
--- NOTE | 2022-09-24 13:52 | DCPLANNER ---
Imm was given and rights explained to pt. A copy was placed in pt's file.
[2022-09-24] MEDS: OLANZapine 5 mg ODT PO (13:55)
== END 2022-09-24 14:21 | disposition home or self-care (01) | DRG 885 ==
LOC: ER 11:55 → NP 12:13
PROVIDERS: Psychiatry & Neurology Psychiatry; Admitting Provider Psychiatry & Neurology Psychiatry; Emergency Provider Physician Assistant; Visit Provider Psychiatry & Neurology Psychiatry
DX: F25.0 Schizoaffective disorder, bipolar type (principal); F10.10 Alcohol abuse, uncomplicated; F43.10 Post-traumatic stress disorder, unspecified; F11.90 Opioid use, unspecified, uncomplicated
CPT/HCPCS: 36415; 80053; 80306; 80307; 81001; 81003; 84703; 85025; 97150; 97165; 99238; 99285; J0573; Q0162

== ENCOUNTER 2022-10-08 13:32 | Outpatient (CLI) | payer MEDICARE, MEDICAID, SELFPAY ==
[2022-10-08 15:37] LABS: Hematocrit 42.6 % (37.0-47.0); Hemoglobin 13.6 g/dL (11.5-15.3); Mean Corpuscular HGB Conc 31.9 g/dL (30.0-36.0); Mean Corpuscular Hemoglobin 29.8 pg (28.0-34.0); Mean Corpuscular Volume 93.4 fl (81-99); Mean Platelet Volume 9.4 fL (7.4-10.4); Platelet Count 513 10^3/cmm (130-400); Red Blood Count 4.56 10^6/uL (4.1-5.3); Red Cell Distribution Width 12.3 % (12.1-15.1); White Blood Count 11.1 10^3/uL (4.0-10.0)
[2022-10-08 15:54] LABS: INR 0.94 (0.8-1.2)
[2022-10-08 16:06] LABS: Erythrocyte Sedimentation Rate 10 mm/hr (0-15)
[2022-10-08 16:17] LABS: Alanine Aminotransferase 30 U/L (0-33); Albumin Level 4.3 g/dL (3.5-5.2); Alkaline Phosphatase 91 U/L (35-105); Anion Gap 12.1 (5-19); Aspartate Amino Transferase 32 U/L (0-32); Blood Urea Nitrogen 17 mg/dL (6-20); Calcium 9.5 mg/dL (8.5-10.5); Carbon Dioxide 31 mmol/L (22-29); Chloride 98 mmol/L (98-107); Glomerular Filtration Rate 78.3 mL/min (90-130); Glucose 90 mg/dL (65-115); NT Pro B Type Natriuretic Pept 36 pg/mL (0-125); Osmolality Calculated 285 mOsm/kg (285-295); Potassium 4.1 mmol/L (3.5-5.1); Sodium 137 mmol/L (136-145); Total Bilirubin 0.2 mg/dL (0.15-1.2); Total Protein 7.3 g/dL (6.6-8.7)
[2022-10-08 16:22] LABS: Hepatitis A Antibody IgM Non-Reactive (Nonreactive); Hepatitis B Core AB, Total Non-Reactive (Nonreactive); Hepatitis B Surface AB 6.9 (11.5-1000); Hepatitis B Surface Antigen Non-Reactive (Nonreactive); Hepatitis C Virus Antibody Reactive (Nonreactive)
[2022-10-08 16:23] LABS: HIV 1 & 2 Antigen Non-Reactive (Non-Reactiv)
[2022-10-08 16:24] LABS: HIV 1 & 2 Antibody Non-Reactive (Non-Reactiv)
[2022-10-08 16:52] LABS: Absolute Eosinophils 0.2 10^3/cmm (0.0-0.7); Absolute Neutrophil 7.3 10^3/cmm (1.4-6.5); Absolute Segmented Neutrophil 7.3 10/cmm (1.6-7.1); Eosinophils 2 %; Lymphocytes 21 %; Lymphocytes Absolute 2.7 10^3/cmm (1.2-3.4); Monocytes Absolute 0.9 10^3/cmm (0.1-0.6); Platelet Estimate Normal (Normal); Segmented Neutrophils 66 %; Total Cells Counted 100 (0-100)
[2022-10-09 11:30] LABS: Anti-Double Strand DNA AB <1 IU/mL
[2022-10-09 21:56] LABS: HEP C RNA Viral Load Quant 6.99 Log IU/mL (NOT DETECTED)
== END 2022-10-08 13:33 | disposition home or self-care (01) ==
LOC: LAB 13:37
PROVIDERS: Visit Provider Internal Medicine
DX: F10.10 Alcohol abuse, uncomplicated (principal)
CPT/HCPCS: 36415; 80053; 83880; 85007; 85027; 85610; 85651; 86225; 86705; 86706; 86709; 86803; 87340; 87522; 87806

== ENCOUNTER 2023-01-07 12:33 | Emergency (ER) | payer MEDICARE, MEDICAID, SELFPAY ==
[2023-01-07 12:47] VITALS: BP 153/108; PULSE 129; RESP 18; TEMP 36.6; O2SAT 99; BMI 32.4
--- NOTE | 2023-01-07 13:08 | ECG_ITS ---
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 Measurements Intervals [place] Rate: 111 P: 65 AK: 172 QRS: 64 QRSD: 93 T: 43 QT: 318 QTc: 434 Interpretive Statements SINUS TACHYCARDIA LEFT ATRIAL ENLARGEMENT [-0.15mV P-WAVE IN V1/V2] No previous ECG available for comparison Electronically Signed On 01-07-2023 17:45:25 CDT by Johnathon Magana M.D. [id number]
--- NOTE | 2023-01-07 13:11 | W.ED.GENADLT ---
HPI - General Adult General: Chief complaint: General Medical Stated complaint: Right leg Spot that might be infected Time Seen by Provider: 01/07/23 12:51 History of Present Illness: Patient is a 42-year-old female comes to the ED with wound on right lower leg. Patient says wound started approximately 2 weeks ago. Patient says she is an IV meth user and shot up some drugs in right leg 2 weeks ago right in the exact location where her wound now currently is. Patient has a history of MRSA. She has been taking care of wound at home by cleaning it and putting mupirocin on it daily. Skin started to breakdown around the wound. Denies any red streaking on the leg, fevers or any other symptoms. Associated symptoms: Deny chest pain, dyspnea, headache(s), nausea, rash, palpitations or vomiting Review of Systems Const: Denies: fever(s), chills or fatigue Eyes: Denies: change in vision or eye discomfort ENMT: Denies: throat pain, odynophagia, nasal discharge or nasal congestion Card: Denies: chest pain, palpitations, edema, swelling of feet/ankles, dyspnea on exertion or orthopnea Resp: Denies: dyspnea, productive cough or non-productive cough GI: Denies: abdominal pain, nausea, vomiting, diarrhea, constipation or hematochezia : Denies: flank pain, dysuria or hematuria Musc: Denies: neck pain, back pain or extremity swelling Skin/Breast: Denies: rash or new lesions Neuro: Denies: headache(s), numbness in extremities or weakness in extremities PFS ED PFSH: Medical History Psychiatric care Schizoaffective disorder Social History Alcohol intake: current Physical Exam Const: COMMON NORMALS: patient oriented x3 HENMT: COMMON NORMALS: normocephalic HEAD & SCALP: normocephalic MOUTH: Normal oral and palatal mucosa present THROAT: posterior oropharynx normal and uvula midline Neck/C-Spine: COMMON NORMALS: supple GENERAL: Yes normal visual inspection Resp: COMMON NORMALS: normal respiratory effort, No retractions, No use of accessory muscles and clear to auscultation bilaterally AUSCULTATION: clear to auscultation bilaterally Cardio: COMMON NORMALS: regular rate, regular rhythm, S1 normal heart sound present, S2 normal heart sound present, No gallops present (Cardio), No clicks present (Cardio), No murmurs present (Cardio) and Peripheral pulses 2+ throughout RATE: regular rate RHYTHM: regular rhythm HEART SOUNDS: S1 normal heart sound present and S2 normal heart sound present PERIPHERAL PULSES: Peripheral pulses 2+ throughout GI: COMMON NORMALS: Normal to inspection, nondistended, normoactive bowel sounds present, Soft to palpation, non-tender and no masses PALPATION: Yes Soft to palpation : COMMON NORMALS: Yes no CVA tenderness BLADDER/KIDNEY EXAM: Yes no CVA tenderness Back/Pelvis: COMMON NORMALS: no CVA tenderness Extremity: NARRATIVE EXTREMITY EXAM: Right upper posterior calf. Small ulcerated wound approximately 2 cm in diameter. Skin breakdown seen. Fat tissue seen. No purulent drainage. Some surrounding erythema but no red streaking up her right leg. Neuro: COMMON NORMALS: patient oriented x3 GAIT: Yes Normal gait present Skin: GENERAL SKIN EXAM: dry skin Course Vital Signs: Vital signs: Vital Signs Temperature 97.8 F 01/07/23 12:47 Pulse Rate 129 H 01/07/23 12:47 Respiratory Rate 18 01/07/23 12:47 Blood Pressure 153/108 01/07/23 12:47 Pulse Oximetry 99 01/07/23 12:47 Oxygen Delivery Me thod Room Air 01/07/23 12:47 MDM - General Adult Medical Decision Making Patient is a 42-year-old female comes to the ED with wound on right lower leg. Patient says wound started approximately 2 weeks ago. Patient says she is an IV meth user and shot up some drugs in right leg 2 weeks ago right in the exact location where her wound now currently is. Patient has a history of MRSA. She has been taking care of wound at home by cleaning it and putting mupirocin on it daily. Skin started to breakdown around the wound. Denies any red streaking on the leg, fevers or any other symptoms. Vitals are stable. Right upper posterior calf. Small ulcerated wound approximately 2 cm in diameter. Skin breakdown seen. Fat tissue seen. No purulent drainage. Some surrounding erythema but no red streaking up her right leg. White blood cell count of 16 and the rest of CBC and CMP was unremarkable. Patient was given a shot of Rocephin here in the ED and I placed an order with case management for patient be referred to wound care clinic for follow-up. Patient diagnosed with open wound of right lower leg and was discharged home with a prescription for Bactrim. She was told how to take care of wound. Return to ED precautions given. Patient understood and agreed with plan. Lab Data I reviewed the patient's lab results. 01/07/23 14:10 01/07/23 14:10 Laboratory Results WBC 16.0 10^3/uL (4.0-10.0) H 01/07/23 14:10 RBC 5.17 10^6/uL (4.1-5.3) 01/07/23 14:10 Hgb 15.9 g/dL (11.5-15.3) H 01/07/23 14:10 Hct 49.7 % (37.0-47.0) H 01/07/23 14:10 MCV 96.1 fl (81-99) 01/07/23 14:10 MCH 30.8 pg (28.0-34.0) 01/07/23 14:10 MCHC 32.0 g/dL (30.0-36.0) 01/07/23 14:10 RDW 14.4 % (12.1-15.1) 01/07/23 14:10 Plt Count 527 10^3/cmm (130-400) H 01/07/23 14:10 MPV 9.1 fL (7.4-10.4) 01/07/23 14:10 Neut % (Auto) 71.0 % 01/07/23 14:10 Lymph % (Auto) 20.4 % 01/07/23 14:10 [place] % (Auto) 6.3 % 01/07/23 14:10 Eos % (Auto) 1.0 % 01/07/23 14:10 Baso % (Auto) 0.7 % 01/07/23 14:10 Neut # (Auto) 11.37 10^3/uL (1.8-7.7) H 01/07/23 14:10 Lymph # (Auto) 3.3 10^3/uL (0.8-4.8) 01/07/23 14:10 [place] # (Auto) 1.0 10^3/uL (0.2-0.9) H 01/07/23 14:10 Eos # (Auto) 0.2 10^3/uL (0.0-0.8) 01/07/23 14:10 Baso # (Auto) 0.1 10^3/uL (0.0-0.1) 01/07/23 14:10 Nucleated RBC % (auto) 0 % 01/07/23 14:10 Nucleated RBCs # 0.0 /100WBC 01/07/23 14:10 Sodium 140 mmol/L (136-145) 01/07/23 14:10 Potassium 3.7 mmol/L (3.5-5.1) 01/07/23 14:10 Chloride 102 mmol/L (98-107) 01/07/23 14:10 Carbon Dioxide 19 mmol/L (22-29) L 01/07/23 14:10 Anion Gap 22.7 (5-19) H 01/07/23 14:10 BUN 12 mg/dL (6-20) 01/07/23 14:10 Creatinine 0.5 mg/dL (0.5-0.9) 01/07/23 14:10 GFR Calculation 134.7 mL/min (90-130) H 01/07/23 14:10 Glucose 118 mg/dL (65-115) H 01/07/23 14:10 Calculated Osmolality 291 mOsm/kg (285-295) 01/07/23 14:10 Calcium 9.7 mg/dL (8.5-10.5) 01/07/23 14:10 Discharge Plan Discharge Patient Disposition: Home Clinical Impression: Open wound of right lower leg Qualifiers: Encounter type: initial encounter Qualified Code(s): S81.801A - Unspecified open wound, right lower leg, initial encounter Condition: Stable Prescriptions: New sulfamethoxazole-trimethoprim 800-160 mg tablet 1 tab PO BID 10 Days Qty: 20 0RF No Action baclofen 10 mg Tablet 10 mg PO BID gabapentin 300 mg Capsule 300 mg PO BID trazodone 50 mg Tablet 50 mg PO BEDTIME PRN (Reason: Sleep) 30 Days Qty: 30 1RF prazosin 1 mg Capsule 2 mg PO BEDTIME 30 Days Qty: 60 1RF Vitamin B-1 (mononitrate) 100 mg Tablet 100 mg PO DAILY 30 Days Qty: 30 1RF lurasidone 60 mg tablet 60 mg PO 1700 30 Days Qty: 30 1RF haloperidol 2 mg tablet 2 mg PO 0900,2100 30 Days Qty: 60 1RF duloxetine 60 mg Capsule,Delayed Release(Dr/Ec) 60 mg PO DAILY 30 Days Qty: 30 1RF doxepin 50 mg capsule 50 mg PO BEDTIME 30 Days Qty: 30 1RF buspirone 15 mg tablet 15 mg PO TID 30 Days Qty: 90 1RF Suboxone 8-2 mg film 1 film sublingual DAILY 7 Days Qty: 14 0RF Discharge Orders: Discharge ED (Routine); Ordered 01/07/23 Ordered By: Anish Castro Discharge Diet: Regular Discharge Activity: Increase activity as tolerated Activity Restrictions/Additional Instructions: Follow-up with medical provider as directed. Case management should be contacted in the next several days to set up an appointment with wound care clinic for follow-up on right lower leg wound. Keep wound area clean with some soap and water and you can continue using triple antibiotic ointment or mupirocin on wound daily and keep covered with bandage. Take medications as prescribed. Return to the ER or your medical provider if condition worsens. Please read and understand discharge instructions. Thank you for choosing [facility] for your healthcare needs today. Please realize this is an emergency room and that we are providing you with a medical screening exam and this may not be complete and all inclusive of all the testing and or work up that you may need to determine your ailment or severity of your illness. It is very important that you follow up as instructed or that you return to the Emergency Department should you have concerns or if your condition changes or worsens in any way. Coding Level of Care Code ED Manager Of Regulatory Affairs for P[facility]rez Carmona
[2023-01-07] MEDS: cefTRIAXone 1,000 MG in water for injection-sterile 2.1 ML 100 MG IM (13:38)
[2023-01-07 14:23] LABS: Basophils # 0.1 10^3/uL (0.0-0.1); Basophils % 0.7 %; Eosinophils # 0.2 10^3/uL (0.0-0.8); Hematocrit 49.7 % (37.0-47.0); Hemoglobin 15.9 g/dL (11.5-15.3); Lymphocytes # 3.3 10^3/uL (0.8-4.8); Lymphocytes % 20.4 %; Mean Corpuscular Hemoglobin 30.8 pg (28.0-34.0); Mean Corpuscular Volume 96.1 fl (81-99); Mean Platelet Volume 9.1 fL (7.4-10.4); Monocytes % 6.3 %; Neutrophils # 11.37 10^3/uL (1.8-7.7); Nucleated Red Blood Cells % 0 %; Platelet Count 527 10^3/cmm (130-400); Red Blood Count 5.17 10^6/uL (4.1-5.3); Red Cell Distribution Width 14.4 % (12.1-15.1)
[2023-01-07 14:44] LABS: Anion Gap 22.7 (5-19); Blood Urea Nitrogen 12 mg/dL (6-20); Calcium 9.7 mg/dL (8.5-10.5); Carbon Dioxide 19 mmol/L (22-29); Chloride 102 mmol/L (98-107); Glomerular Filtration Rate 134.7 mL/min (90-130); Glucose 118 mg/dL (65-115); Osmolality Calculated 291 mOsm/kg (285-295); Potassium 3.7 mmol/L (3.5-5.1); Sodium 140 mmol/L (136-145)
[2023-01-07 15:08] LABS: Slide Review Slide Review Perform
--- NOTE | 2023-01-07 15:10 | PC.NURSE ---
Addendum entered by Chelsie Asencio 01/19/23 11:21: Patient had a follow up appointment at wound care - patient did attend appointment. Addendum entered by Chelsie Asencio 01/09/23 10:30: Patient has a follow up appointment scheduled for Friday, January 13, 2023 at 2:30 with Teri Epstein at [facility]. Original Note: Patient was seen in the ED on 01/07/23 Referral to wound care for wound on leg from IV drug use. Message sent to clinic to contact patient for an appt.
== END 2023-01-07 15:12 | disposition home or self-care (01) ==
PROVIDERS: Emergency Provider Physician Assistant
DX: S81.801A Unspecified open wound, right lower leg, initial encounter (principal); X58.XXXA Exposure to other specified factors, initial encounter; D72.829 Elevated white blood cell count, unspecified
CPT/HCPCS: 36415; 80048; 85025; 93005; 96372; 96374; 99284; J0696

== ENCOUNTER → 2023-01-13 13:33 | Outpatient (BNVA) | payer MEDICARE, MEDICAID, SELFPAY | PROVIDERS: Visit Provider Nurse Practitioner Family | DX: I96 Gangrene, not elsewhere classified (principal); L97.912 Non-pressure chronic ulcer of unspecified part of right lower leg with fat layer exposed | CPT/HCPCS: 11042; 99213; A6219 ==

== ENCOUNTER → 2023-02-05 15:18 | Outpatient (BNVA) | payer MEDICARE, MEDICAID, SELFPAY | PROVIDERS: Visit Provider Nurse Practitioner Family | DX: I96 Gangrene, not elsewhere classified (principal); L97.812 Non-pressure chronic ulcer of other part of right lower leg with fat layer exposed | CPT/HCPCS: 97597 ==